=== PATIENT | male | born 1955 | race Caucasian/White ===

== ENCOUNTER 2016-07-12 00:36 | Inpatient (IN) | payer MEDICAID ==
[~2016-07-12] VITALS: Ht 177.8 cm; Wt 114.1 kg
[~2016-07-12 00:36] MED LIST: ASPI-650 PO; ATOR80TA18 PO; BENA20TA48 PO; CLOP75TA19 PO; FURO40TA4 PO; GLIM4TAB PO; MTF1000T PO; SMV40T PO; same meds
[2016-07-12] MEDS ORDERED: NITROGLYCERIN 50 MG/D5W (PMX) 250 ML IV STA (00:37)
[2016-07-12] MEDS ORDERED: ALBUTEROL 0.083% (NEB) 2.5 MG/3 ML AMP HHN ONE ×2 (00:45→02:00)
[2016-07-12 00:53] VITALS: Ht 177.8 cm; Wt 114.1 kg
[2016-07-12] MEDS ORDERED: IPRATROPIUM (NEB) 0.5 MG/2.5 ML AMP HHN ONE ×2 (01:00→02:00)
[2016-07-12] MEDS ORDERED: ENALAPRILAT 1.25 MG INJ IV ONE (01:30)
[2016-07-12 01:54] LABS: ADD SCAN DIFF NO
[2016-07-12] MEDS ORDERED: FUROSEMIDE 40 MG INJ IV ONE ×2 (02:00→14:30)
[2016-07-12 02:06] LABS: INR 1.03; PARTIAL THROMBOPLASTIN TIME 30.9 Sec (25.0-35.0); PROTIME 13.5 Sec (12.2-14.2); PT RATIO 1.1
[2016-07-12 02:08] LABS: CALCIUM 9.3 mg/dl (8.4-10.2); CREATININE 1.61 mg/dl (0.61-1.24)
[2016-07-12 02:09] LABS: BASOPHIL # 0.1 10^3/ul (0.0-0.1); BASOPHILS % 0.7 % (0.0-2.0); EOSINOPHILS # 0.3 10^3/ul (0.0-0.5); EOSINOPHILS % 2.9 % (0.0-7.0); HEMATOCRIT 30.5 % (42.0-52.0); HEMOGLOBIN 9.2 g/dl (14.0-18.0); LYMPHOCYTES # 1.7 10^3/ul (0.8-2.9); LYMPHOCYTES % 18.8 % (15.0-51.0); MEAN CORPUSCULAR HEMOGLOBIN 27.5 pg (29.0-33.0); MEAN CORPUSCULAR HGB CONC 30.2 g/dl (32.0-37.0); MEAN PLATELET VOLUME 12.1 fl (7.4-10.4); MONOCYTE # 0.7 10^3/ul (0.3-0.9); MONOCYTES % 8.1 % (0.0-11.0); NEUTROPHIL # 6.3 10^3/ul (1.6-7.5); NEUTROPHILS % 69.1 % (39.0-77.0); PLATELET COUNT 194 10^3/UL (140-415); RED BLOOD COUNT 3.35 10^6/ul (4.70-6.10); RED CELL DISTRIBUTION WIDTH 15.4 % (11.5-14.5); WHITE BLOOD COUNT 9.1 10^3/ul (4.8-10.8)
[2016-07-12 02:19] LABS: CK-MB 1.52 ng/ml (0.0-2.4)
[2016-07-12 02:21] LABS: TROPONIN-I 0.028 ng/ml (0.00-0.12)
--- NOTE | 2016-07-12 02:27 | RADRPT ---
PROCEDURE: XR Chest. CLINICAL INDICATION: Chest pain, shortness of breath TECHNIQUE: Single frontal view of the chest was obtained COMPARISON: 04/24/2012 FINDINGS: Enlargement of the cardiac silhouette again seen. There is now pulmonary vascular congestion and bi lateral lung density consistent with pulmonary edema. Calcification in the aortic arch. ECG leads projected over the chest. No definite pneumothorax is seen. IMPRESSION: Consistent with congestive heart failure and pulmonary edema. RPTAT: HJES .Griffin Lane MD, MD Date Time Electronically viewed and signed by .Griffin Lane MD, MD on 07/12/2016 02:27 .S/
[2016-07-12 02:29] LABS: TROPONIN-I 0.035 ng/ml (0.00-0.12)
[2016-07-12 02:52] LABS: AADO2 Arterial 213.9 mmHg (7.0-24.0); Allen Test ACCEPTAB; Arterial Base Excess 4.3 mmol/L (-3.0-3); Arterial COHb 0.3 % (0.0-3.0); Arterial Fraction of Oxyhgb 97.8 % (93.0-99.0); Arterial HCO3 30.2 mmol/L (22.0-26.0); Arterial MetHb 0.5 % (0.0-1.5); Arterial Total Hemglobin 9.1 g/dl (12.0-18.0); Blood Gas IEPAP 18/5; Blood Gas PS 13; MODE MASK - BIPAP
[2016-07-12 03:03] LABS: AADO2 Arterial 213.9 mmHg (7.0-24.0); Allen Test ACCEPTAB; Arterial Base Excess 4.3 mmol/L (-3.0-3); Arterial COHb 0.3 % (0.0-3.0); Arterial Fraction of Oxyhgb 97.8 % (93.0-99.0); Arterial HCO3 30.2 mmol/L (22.0-26.0); Arterial MetHb 0.5 % (0.0-1.5); Arterial Total Hemglobin 9.1 g/dl (12.0-18.0); Blood Gas IEPAP 18/5; Blood Gas PS 13; MODE MASK - BIPAP
--- NOTE | 2016-07-12 03:24 | ERA ---
ER Documentation Chief Complaint Date/Time DATE: 07/12/16 TIME: 03:18 Chief Complaint biba from home pt was gasping for air and tripoding per ems. o2 77% on CPAP HPI This 61-year-old gentleman presents to the emergency room after being brought in by ambulance from home for evaluation of respiratory distress. According to EMS this patient was gasping for air and was tripoding and his pulse ox was 54 percent on room air. The patient was placed on a CPAP machine and was transported to the emergency room for further evaluation. A detailed history is unobtainable from this patient secondary to his clinical condition at this time. ROS All systems reviewed and are negative except as per history of present illness. Medications Home Meds Reported Medications [same meds] No Conflict Check 02/02/12 Simvastatin (Simvastatin) 40 Mg Tablet, 1 TAB PO QHS 10/27/11 Furosemide (Lasix) 40 Mg Tab, 2 TAB PO BID 10/27/11 Clopidogrel Bisulfate (Plavix) 75 Mg Tablet, 1 TAB PO DAILY 10/27/11 Glimepiride* (Glimepiride*) 4 Mg Tablet, 1 TAB PO BID 10/27/11 Benazepril Hcl* (Benazepril Hcl*) 20 Mg Tablet, 1 TAB PO BID 10/27/11 Aspirin (Aspirin) 81 Mg Tablet, 1 TAB PO DAILY 10/27/11 Atorvastatin (Lipitor) 80 Mg Tablet, 1 TAB PO DAILY 10/27/11 Metformin* (Glucophage*) 1,000 Mg Tablet, 1 TAB PO BID 10/27/11 Allergies Allergies: Coded Allergies: No Known Drug Allergies (Verified Allergy, 04/23/12) Uncoded Allergies: KIWI (Allergy, Unknown, 10/31/11) PMhx/Soc History of Surgery: Yes Anesthesia Reaction: No Hx Neurological Disorder: No Hx Respiratory Disorders: Yes (COPD, CHF) Hx Cardiac Disorders: Yes (CHF) Hx Psychiatric Problems: No Hx Miscellaneous Medical Probl: No Hx Alcohol Use: No Hx Substance Use: No Hx Tobacco Use: No Physical Exam Vitals Vital Signs Date Time Temp Pulse Resp B/P Pulse Ox O2 Delivery O2 Flow Rate FiO2 07/12/16 03:04 98.7 80 18 90/56 100 BIPAP 07/12/16 02:45 80 18 87/51 100 BIPAP 07/12/16 02:34 98.7 84 21 94/57 100 BIPAP 07/12/16 02:12 94 21 97/57 100 BIPAP 07/12/16 02:03 99 23 120/65 100 BIPAP 07/12/16 01:56 106 30 136/74 BIPAP 07/12/16 01:49 111 30 165/83 100 BIPAP 07/12/16 01:40 98.7 115 40 183/87 97 BIPAP 07/12/16 01:30 120 35 205/90 100 BIPAP 07/12/16 01:17 119 100 60 07/12/16 00:53 98.4 115 28 188/93 97 Physical Exam INITIAL VITAL SIGNS: Reviewed by me GENERAL: The patient is well developed, severe respiratory distress, tachypnea HEENT: Pupils equal, round, and reactive to light. EOMI. There is no scleral icterus. NECK: C-spine is soft and supple, there is no meningismus. There is no cervical lymphadenopathy. LUNGS: Diffuse rales auscultated in upper and lower lobes HEART: Tachycardic, no murmurs, clicks, rubs or gallops. ABDOMEN: Soft, non-tender, non-distended. There are bowel sounds in all four quadrants. No rebound or guarding. EXTREMITIES: There is no peripheral cyanosis or edema. No focal swelling or erythema. NEUROLOGICAL: The patient moves all four extremities with 5/5 strength. Cranial nerves II - XII are intact. Normal gait. Alert and oriented SKIN: Diaphoretic, there is no apparent rash or petechiae. HEME/LYMPHATIC: There is no evidence of excessive bruising or lymphedema. PSYCHIATRIC: The patient does not appear anxious or depressed. Result Diagram: 07/12/16 0140 07/12/16 0140 Results 24 hrs Laboratory Tests Test 07/12/16 00:52 07/12/16 01:40 07/12/16 02:30 Blood Gas Specimen Source Blood arterial Blood arterial Arterial Blood Date Drawn 07/12/2016 2:40:31 AM 07/12/2016 2:40:00 AM Arterial Blood pH (Temp corrected) 7.376 7.376 Arterial Blood pCO2 (Temp correct) 52.7mmhg 52.7mmhg Arterial Blood pO2 (Temp corrected) 155.9mmHG 155.9mmHG Arterial Blood HCO3 30.2mmol/L 30.2mmol/L Arterial Blood Base Excess 4.3mmol/L 4.3mmol/L Arterial Blood Oxygen Saturation 98.6mmHG 98.6mmHG Jose David Test ACCEPTAB ACCEPTAB Arterial Blood Gas Puncture Site Right Radial Right Radial Arterial Blood Carboxyhemoglobin 0.3% 0.3% Arterial Blood Methemoglobin 0.5% 0.5% Blood Gas A-a O2 Differential 213.9mmHg 213.9mmHg Oxyhemoglobin Percent 97.8% 97.8% Total Hemoglobin 9.1g/dl 9.1g/dl Blood Gas Temperature 37.0C 37.0C Blood Gas Respiration Rate 20.0 20.0 Blood Gas Actual Respiration Rate 24 24 Blood Gas Modality MASK - BIPAP MASK - BIPAP FiO2 60.0% 60.0% Blood Gas Pressure Support 13 13 Blood Gas IPAP/EPAP Ratio 18/5 18/5 Blood Gas Notified Whom UP UP Blood Gas Notified Time 07/12/2016 2:52:25 AM 07/12/2016 2:52:00 AM White Blood Count 9.110^3/ul Red Blood Count 3.3510^6/ul Hemoglobin 9.2g/dl Hematocrit 30.5% Mean Corpuscular Volume 91.0fl Mean Corpuscular Hemoglobin 27.5pg Mean Corpuscular Hemoglobin Concent 30.2g/dl Red Cell Distribution Width 15.4% Platelet Count 75392^3/UL Mean Platelet Volume 12.1fl Neutrophils % 69.1% Lymphocytes % 18.8% Monocytes % 8.1% Eosinophils % 2.9% Basophils % 0.7% Nucleated Red Blood Cells % 0.0/100WBC Neutrophils # 6.310^3/ul Lymphocytes # 1.710^3/ul Monocytes # 0.710^3/ul Eosinophils # 0.310^3/ul Basophils # 0.110^3/ul Nucleated Red Blood Cells # 0.010^3/ul Prothrombin Time 13.5Sec Prothrombin Time Ratio 1.1 INR International Normalized Ratio 1.03 Activated Partial Thromboplast Time 30.9Sec Sodium Level 142mmol/L Potassium Level 5.0mmol/L Chloride Level 100mmol/L Carbon Dioxide Level 29mmol/L Anion Gap 18 Blood Urea Nitrogen 36mg/dl Creatinine 1.61mg/dl Glucose Level 210mg/dl Lactic Acid Level 1.4mmol/L Calcium Level 9.3mg/dl Creatine Kinase 71IU/L Creatine Kinase Index 2.1 Creatinine Kinase MB (Mass) 1.52ng/ml Troponin I 0.035ng/ml B-Type Natriuretic Peptide 3010PG/ML Current Medications Medications (Trade) Dose Ordered Sig/Jose De Jesus Route PRN Reason Start Time Stop Time Status Last Admin Dose Admin Nitroglycerin/ Dextrose (Nitroglycerin 50 Mg/D5W (Pmx)) 250 ml @ 6 mls/hr ONCE STAT IV 07/12/16 00:37 07/13/16 18:16 07/12/16 01:29 Albuterol (Proventil 0.083% (Neb)) 10 mg ONCE ONCE N 07/12/16 00:45 07/12/16 00:50 DC 07/12/16 01:15 Ipratropium [place] (Atrovent 0.02% (Neb)) 1 mg ONCE ONCE N 07/12/16 01:00 07/12/16 01:01 DC 07/12/16 01:15 Enalaprilat (Vasotec Iv) 0.625 mg ONCE ONCE IV 07/12/16 01:30 07/12/16 01:31 DC 07/12/16 01:27 Furosemide (Lasix) 40 mg ONCE ONCE IV 07/12/16 02:00 07/12/16 02:01 DC Albuterol (Proventil 0.083% (Neb)) 10 mg ONCE ONCE N 07/12/16 02:00 07/12/16 02:01 DC 07/12/16 02:16 Ipratropium [place] (Atrovent 0.02% (Neb)) 1 mg ONCE ONCE N 07/12/16 02:00 07/12/16 02:01 DC 07/12/16 02:16 Procedures/MDM EKG: Rate/Rhythm: Sinus tachycardia QRS, ST, T-waves: [No changes consistent w/ acute ischemia] Impression: [No evidence of ischemia or arrhythmia] Chest X-ray 1V Interpreted by me: Soft Tissue: Pulmonary edema Bones: No acute abnormalities Mediastinum/Cardiac Silhouette/Lungs: [No acute abnormalities] X-ray Shoulder 3V Interpreted by me: Bones: Humeral neck fracture Joints: No dislocation Foreign body: None This 61-year-old male presents to the emergency room in severe respiratory distress. When this patient presented is on a CPAP, he was diaphoretic, tachypneic, and tachycardic. His pulse ox is 74%. This patient was immediately transitioned to a BiPAP. No IV line was established and he was started on the nitroglycerin drip at 300 mics per minute. The patient was given intravenous Vasotec, and lab work was drawn. This patient's x-ray does show pulmonary edema. After 20 minutes on a BiPAP this patient started to improve clinically. His first ABG does show hypercarbia. This patient's blood pressure started to slowly trend down from systolic of greater than 200 to approximately 150 systolic. The patient is diuresing in the emergency room. He states is feeling much better at this time. There is no need for emergent intubation this patient is clinically improving on BiPAP with nitro. This patient will be placed in the intensive care unit given his initial presentation of severe respiratory distress. He is on a nitroglycerin drip at this time at 25 mics per minute. This patient was complaining of right-sided arm pain and stated that he fell one month ago and thinks that his arm is broken. He has not seen a physician for this. I did obtain an x-ray which did confirm a humeral neck fracture. This patient was placed in the right arm sling. He will be admitted to our panel physician, Dr. Richardson. Splint Assessment: Neurovascularly intact post splint placement with good fit. Critical Care: Excluding all billable procedures Time: 48 minutes Treatments/Evaluations: Emergent and rapid respiratory assessment and management with continuous monitoring. Advanced airway equipment at the ready, while the patient's respiratory symptoms were stabilized. Departure Diagnosis: Primary Impression: Acute and chronic respiratory failure with hypoxia Additional Impressions: Acute decompensated heart failure Pulmonary edema Hypercapnia Fracture of neck of humerus Renal insufficiency Uncontrolled hypertension Condition: Stable CLARIMAT STAPLETON Jul 12, 2016 03:24
--- NOTE | 2016-07-12 03:41 | RADRPT ---
PROCEDURE: RIGHT SHOULDER CLINICAL INDICATION: 61-year-old male with trauma. TECHNIQUE: Two-views of the right shoulder were obtained. The images reviewed on a PACS workstatio n. COMPARISON: Right humerus obtained concurrently. FINDINGS: There is a displaced comminuted proximal right humeral head/neck fracture with avulsion of the great er tuberosity. Mild degenerative changes are seen within the right acromioclavicular joint. IMPRESSION: Displaced comminuted proximal right humeral head/neck fracture. .Sonny Demarco MD, MD Date Time Electronically viewed and signed by .Sonny Demarco MD, MD on 07/12/2016 03:41 .M/
--- NOTE | 2016-07-12 03:42 | RADRPT ---
PROCEDURE: RIGHT HUMERUS - 1 VIEW CLINICAL INDICATION: 61-year-old male with right arm pain following trauma. TECHNIQUE: A single AP view of the right humerus was performed. The images reviewed on a PACS work station. COMPARISON: Right shoulder obtained concurrently. FINDINGS: There is a displaced comminuted proximal right humeral head/neck fracture with avulsion of the great er tuberosity. Mild degenerative changes are seen within the right acromioclavicular joint. The elb ow joint appears to be intact on this single plane radiograph. Calcifications are noted within the region of the proximal brachial artery. The bone marrow mineralization is within normal limits. IMPRESSION: Displaced comminuted proximal right humeral head/neck fracture. .Sonny Demarco MD, MD Date Time Electronically viewed and signed by .Sonny Demarco MD, on 07/12/2016 03:42 .M/
[2016-07-12] MEDS ORDERED: GLUCOSE GEL 15 GRAM TUBE BUCCAL PRN (04:30)
[2016-07-12] MEDS ORDERED: DEXTROSE 50% 50 ML SYRINGE IV PRN ×2 (04:30)
[2016-07-12] MEDS ORDERED: NITROGLYCERIN (SL) 0.4 MG TAB SL PRN (04:30)
[2016-07-12] MEDS ORDERED: LORAZEPAM 2 MG INJ IV PRN (04:30)
[2016-07-12] MEDS ORDERED: METOCLOPRAMIDE 10 MG INJ IV PRN (04:30)
[2016-07-12] MEDS ORDERED: GLUCOSE GEL 15 GRAM TUBE PO PRN ×2 (04:30)
[2016-07-12] MEDS ORDERED: GLUCAGON 1 MG INJ IM PRN (04:30)
[2016-07-12] MEDS ORDERED: ACETAMINOPHEN 650MG/20.3ML CUP PO PRN (04:30)
[2016-07-12] MEDS ORDERED: HYDROCODONE/APAP (5/325) TAB PO PRN ×2 (04:30)
--- NOTE | 2016-07-12 04:33 | HP ---
Date/Time of Note Date/Time of Note DATE: 07/12/16 TIME: 04:06 Assessment/Plan VTE Prophylaxis VTE Prophylaxis Intervention: other (Lovenox) Lines/Catheters IV [facility] Saline Lock Assessment/Plan Assessment/Plan 1) Acute and chronic respiratory failure with hypoxia - ADMIT to Intensive care - CONSULT: Critical Care - Dr. Andres - CONSULT - Cardiology - Dr. Davenport - COntinue Nitro Drip as needed to control blood pressure - Continue CPAP - ABGs prn - Echocardiogram - Serial Troponin - EKG in AM - Labs in AM: CBC, BMP 2) Acute decompensated heart failure 3) Pulmonary edema - Diurese prn 4) Hypercapnia - Monitor with help of RT 5) Fracture of neck of humerus - Outpatient Ortho Consult unless pt requires Inpatient Evaluation 6) Renal insufficiency - Gentle Hydration 7) Uncontrolled hypertension 8) Diabetes - AccuChek Q 4 hours while NPO then AC and HS - Insulin Sliding Scale HPI/ROS Admit Date/Time Admit Date/Time 07/12/16 0406 Hx of Present Illness biba from home pt was gasping for air and tripoding per ems. o2 77% on CPAP This 61-year-old gentleman presents to the emergency room after being brought in by ambulance from home for evaluation of respiratory distress. According to EMS this patient was gasping for air and was tripoding and his pulse ox was 54 percent on room air. The patient was placed on a CPAP machine and was transported to the emergency room for further evaluation. A detailed history is unobtainable from this patient secondary to his clinical condition at this time. er Course per ER Physician: This 61-year-old male presents to the emergency room in severe respiratory distress. When this patient presented is on a CPAP, he was diaphoretic, tachypneic, and tachycardic. His pulse ox is 74%. This patient was immediately transitioned to a BiPAP. No IV line was established and he was started on the nitroglycerin drip at 300 mics per minute. The patient was given intravenous Vasotec, and lab work was drawn. This patient's x -ray does show pulmonary edema. After 20 minutes on a BiPAP this patient started to improve clinically. His first ABG does show hypercarbia. This patient's blood pressure started to slowly trend down from systolic of greater than 200 to approximately 150 systolic. The patient is diuresing in the emergency room. He states is feeling much better at this time. There is no need for emergent intubation this patient is clinically improving on BiPAP with nitro. This patient will be placed in the intensive care unit given his initial presentation of severe respiratory distress. He is on a nitroglycerin drip at this time at 25 mics per minute. This patient was complaining of right- sided arm pain and stated that he fell one month ago and thinks that his arm is broken. He has not seen a physician for this. I did obtain an x-ray which did confirm a humeral neck fracture. This patient was placed in the right arm sling. He will be admitted to our panel physician, Dr. Espana. KAMILA General: Admits: Denies: Fever, Chills, Poor Appetite, Generalized Body Aches Eyes: Admits: Denies: Blurry Vision, Double Vision HENT: Admits: Denies: Ear Pain/Pressure, Runny/Stuffy Nose, Sore Throat Cardiovascular: Admits: Denies: Chest Pain, Palpitations, Leg Swelling Pulmonary: Admits: Shortness of Breath Denies: Cough, Wheeze Gastrointestinal: Admits: Denies: Abdominal Pain, Nausea, Vomiting, Diarrhea, Blood in Stool, Black-Colored Stool Urogenital: Admits: Denies: Burning with Urination, Urinary Frequency, Blood in Urine Musculoskeletal: Admits: Right shouder pain, improved with sling and pain medication Denies: Joint Swelling, Muscle Pain Neurological: Admits: Denies: Headache, Dizziness, Numbness, Tingling, Shooting Pains Integumentary: Admits: Denies: Rash, Itch Endocrine: Admits: Denies: Excessive Thirst, Excessive Hunger, Intolerant to Cold , Intolerant to Heat Psychiatric: Admits: Denies: Anxiety, Depression PMH/Family/Social Past Medical History COPD; CHF; HTN; DM Social History Alcohol Use: none Smoking Status: Never smoker Drug Use: none Exam/Review of Systems Vital Signs Vitals Vital Signs Date Time Temp Pulse Resp B/P Pulse Ox O2 Delivery O2 Flow Rate FiO2 07/12/16 03:55 60 100 60 07/12/16 03:04 98.7 18 90/56 BIPAP Exam Exam General: Overweight 61 year old male, alert, on CPAP in minimal respiratory distress Eyes: Sclera White HENT: Normocephalic/Atraumatic, External Ears/Nose Normal, Moist Mucus Membranes Neck: Supple, Trachea Midline Cardiovascular: Normal Rate, Regular Rhythm, Normal S1 and S2, No Murmur, No Extra Sounds. Radial pulse +2/4. No pedal Edema. Pulmonary: Clear to Auscultation Bilaterally, but decreased airflow throughout , Normal Respiratory Effort Gastrointestinal: Normoactive Bowel Sounds, Soft, Non-Tender/Non-Distended, No Hepatosplenomegaly Appreciated, No Pulsatile Masses Urogenital: Deferred Musculoskeletal: Normal Muscle Bulk and Tone Neurological: CN II - XII Grossly Intact, Non-Focal, Speech Normal Integumentary: Normal Moisture and Temperature, Good Turgor, No Jaundice, No Rash Lymphatic: No Cervical Lymphadenopathy Psychiatric: Appropriate Mood and Affect, Good Eye Contact Labs Result Diagram: 07/12/16 01407/12/16 014 Medications Medications Home Meds Reported Medications [same meds] No Conflict Check 02/02/12 Simvastatin (Simvastatin) 40 Mg Tablet, 1 TAB PO QHS 10/27/11 Furosemide (Lasix) 40 Mg Tab, 2 TAB PO BID 10/27/11 Clopidogrel Bisulfate (Plavix) 75 Mg Tablet, 1 TAB PO DAILY 10/27/11 Glimepiride* (Glimepiride*) 4 Mg Tablet, 1 TAB PO BID 10/27/11 Benazepril Hcl* (Benazepril Hcl*) 20 Mg Tablet, 1 TAB PO BID 10/27/11 Aspirin (Aspirin) 81 Mg Tablet, 1 TAB PO DAILY 10/27/11 Atorvastatin (Lipitor) 80 Mg Tablet, 1 TAB PO DAILY 10/27/11 Metformin* (Glucophage*) 1,000 Mg Tablet, 1 TAB PO BID 10/27/11 Current Medications Medications (Trade) Dose Ordered Sig/Jose De Jesus Route PRN Reason Start Time Stop Time Status Last Admin Dose Admin Nitroglycerin/ Dextrose (Nitroglycerin 50 Mg/D5W (Pmx)) 250 ml @ 6 mls/hr ONCE STAT IV 07/12/16 00:37 07/13/16 18:16 07/12/16 01:29 Albuterol (Proventil 0.083% (Neb)) 10 mg ONCE ONCE HHN 07/12/16 00:45 07/12/16 00:50 DC 07/12/16 01:15 Ipratropium [place] (Atrovent 0.02% (Neb)) 1 mg ONCE ONCE HHN 07/12/16 01:00 07/12/16 01:01 DC 07/12/16 01:15 Enalaprilat (Vasotec Iv) 0.625 mg ONCE ONCE IV 07/12/16 01:30 07/12/16 01:31 DC 07/12/16 01:27 Furosemide (Lasix) 40 mg ONCE ONCE IV 07/12/16 02:00 07/12/16 02:01 DC Albuterol (Proventil 0.083% (Neb)) 10 mg ONCE ONCE HHN 07/12/16 02:00 07/12/16 02:01 DC 07/12/16 02:16 Ipratropium [place] (Atrovent 0.02% (Neb)) 1 mg ONCE ONCE N 07/12/16 02:00 07/12/16 02:01 DC 07/12/16 02:16 Procedures Procedures Laboratory Tests Test 07/12/16 00:52 07/12/16 01:40 07/12/16 02:30 Blood Gas Specimen Source Blood arterial Blood arterial Arterial Blood Date Drawn 07/12/2016 2:40:31 AM 07/12/2016 2:40:00 AM Arterial Blood pH (Temp corrected) 7.376 7.376 Arterial Blood pCO2 (Temp correct) 52.7mmhg 52.7mmhg Arterial Blood pO2 (Temp corrected) 155.9mmHG 155.9mmHG Arterial Blood HCO3 30.2mmol/L 30.2mmol/L Arterial Blood Base Excess 4.3mmol/L 4.3mmol/L Arterial Blood Oxygen Saturation 98.6mmHG 98.6mmHG Jose David Test ACCEPTAB ACCEPTAB Arterial Blood Gas Puncture Site Right Radial Right Radial Arterial Blood Carboxyhemoglobin 0.3% 0.3% Arterial Blood Methemoglobin 0.5% 0.5% Blood Gas A-a O2 Differential 213.9mmHg 213.9mmHg Oxyhemoglobin Percent 97.8% 97.8% Total Hemoglobin 9.1g/dl 9.1g/dl Blood Gas Temperature 37.0C 37.0C Blood Gas Respiration Rate 20.0 20.0 Blood Gas Actual Respiration Rate 24 24 Blood Gas Modality MASK - BIPAP MASK - BIPAP FiO2 60.0% 60.0% Blood Gas Pressure Support 13 13 Blood Gas IPAP/EPAP Ratio 09/08 09/08 Blood Gas Notified Whom UP UP Blood Gas Notified Time 07/12/2016 2:52:25 AM 07/12/2016 2:52:00 AM White Blood Count 9.110^3/ul Red Blood Count 3.3510^6/ul Hemoglobin 9.2g/dl Hematocrit 30.5% Mean Corpuscular Volume 91.0fl Mean Corpuscular Hemoglobin 27.5pg Mean Corpuscular Hemoglobin Concent 30.2g/dl Red Cell Distribution Width 15.4% Platelet Count 87572^3/UL Mean Platelet Volume 12.1fl Neutrophils % 69.1% Lymphocytes % 18.8% Monocytes % 8.1% Eosinophils % 2.9% Basophils % 0.7% Nucleated Red Blood Cells % 0.0/100WBC Neutrophils # 6.310^3/ul Lymphocytes # 1.710^3/ul Monocytes # 0.710^3/ul Eosinophils # 0.310^3/ul Basophils # 0.110^3/ul Nucleated Red Blood Cells # 0.010^3/ul Prothrombin Time 13.5Sec Prothrombin Time Ratio 1.1 INR International Normalized Ratio 1.03 Activated Partial Thromboplast Time 30.9Sec Sodium Level 142mmol/L Potassium Level 5.0mmol/L Chloride Level 100mmol/L Carbon Dioxide Level 29mmol/L Anion Gap 18 Blood Urea Nitrogen 36mg/dl Creatinine 1.61mg/dl Glucose Level 210mg/dl Lactic Acid Level 1.4mmol/L Calcium Level 9.3mg/dl Creatine Kinase 71IU/L Creatine Kinase Index 2.1 Creatinine Kinase MB (Mass) 1.52ng/ml Troponin I 0.035ng/ml B-Type Natriuretic Peptide 3010PG/ML RADIOLOGY: PROCEDURE: XR Chest. CLINICAL INDICATION: Chest pain, shortness of breath TECHNIQUE: Single frontal view of the chest was obtained COMPARISON: 04/24/2012 FINDINGS: Enlargement of the cardiac silhouette again seen. There is now pulmonary vascular congestion and bilateral lung density consistent with pulmonary edema. Calcification in the aortic arch. ECG leads projected over the chest. No definite pneumothorax is seen. IMPRESSION: Consistent with congestive heart failure and pulmonary edema. PROCEDURE: RIGHT HUMERUS - 1 VIEW CLINICAL INDICATION: 61-year-old male with right arm pain following trauma. TECHNIQUE: A single AP view of the right humerus was performed. The images reviewed on a PACS workstation. COMPARISON: Right shoulder obtained concurrently. FINDINGS: There is a displaced comminuted proximal right humeral head/neck fracture with avulsion of the greater tuberosity. Mild degenerative changes are seen within the right acromioclavicular joint. The elbow joint appears to be intact on this single plane radiograph. Calcifications are noted within the region of the proximal brachial artery. The bone marrow mineralization is within normal limits. IMPRESSION: Displaced comminuted proximal right humeral head/neck fracture. PROCEDURE: RIGHT SHOULDER CLINICAL INDICATION: 61-year-old male with trauma. TECHNIQUE: Two-views of the right shoulder were obtained. The images reviewed on a PACS workstation. COMPARISON: Right humerus obtained concurrently. FINDINGS: There is a displaced comminuted proximal right humeral head/neck fracture with avulsion of the greater tuberosity. Mild degenerative changes are seen within the right acromioclavicular joint. IMPRESSION: Displaced comminuted proximal right humeral head/neck fracture. LENORA ESPANA DO Jul 12, 2016 04:26
[2016-07-12] MEDS: INSULIN ASPART [NOVOLOG] 3 ML PEN SC SCH ×4 (07:29→20:15)
[2016-07-12] MEDS ORDERED: ASPIRIN 81 MG TAB PO SCH (09:00)
[2016-07-12] MEDS ORDERED: BENAZEPRIL 20 MG TAB PO SCH (09:00)
[2016-07-12] MEDS ORDERED: ASPIRIN 81 MG TAB PO ONE (11:30)
[2016-07-12] MEDS: FAMOTIDINE 20 MG TAB PO SCH ×2 (11:52→20:10)
[2016-07-12] MEDS: CLOPIDOGREL 75 MG TAB PO SCH (11:53)
[2016-07-12 12:16] LABS: CHOL/HDL RATIO 3.5 RATIO
--- NOTE | 2016-07-12 12:34 | CONS ---
DATE OF ADMISSION: 07/12/2016 DATE OF CONSULTATION: 07/12/2016 PULMONARY CONSULTATION REASON FOR CONSULTATION: Respiratory distress. Thank you, Dr. Richardson, for this consultation. HISTORY OF PRESENT ILLNESS: This is a 61-year-old gentleman with multiple medical problems, who cam e in from home with significant shortness of breath, hypoxemia and respiratory distress. The patien t is a poor historian and unable to give me further details. Apparently he has been short of breath for several days. On admission he was found to be in congestive cardiac failure, with hypertensive urgency, requiring the addition of nitroglycerin, initiation of noninvasive positive pressure vent ilation and diuresis. Subsequently his respiratory status has improved. Upon further examination h michael also had a right humeral fracture, unclear etiology or day and time of fracture. PAST MEDICAL HISTORY: Hypertension, hyperlipidemia, probable obstructive sleep apnea and type 2 evans betes. MEDICATIONS: Per chart. ALLERGIES: NONE. SOCIAL HISTORY: Tobacco history none. Alcohol unknown. SYSTEMS REVIEW: A 12-point review of systems was negative, other than that mentioned above. PHYSICAL EXAMINATION: GENERAL: A chronically ill appearing gentleman, who appears comfortable at rest, in no acute distre ss. LABORATORY: White count 9.1, hemoglobin 9.2, platelets of 194. Troponin 0.305, BUN 36, creatinine 1.61, BNP 3010. Chest x-ray shows pulmonary edema, right displaced comminuted humeral fracture noted also. IMPRESSION AND PLAN: 1. Recent fall, with humeral fracture. 2. Congestive cardiac failure. 3. Hypoxemic respiratory failure. 4. History of diabetes mellitus. 5. History of essential hypertension. The patient will need: 1. Gentle diuresis. 2. Cardiology recommendations, echocardiogram and evaluation for ischemic heart disease. 3. Orthopedic evaluation. 4. Humeral fracture, likely conservative management. 5. DVT and GI prophylaxis. Dictated By: MARY BETH HAMM/CASSIE Conf#: [id number] DID#: [id number]
--- NOTE | 2016-07-12 14:04 | CONS ---
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 He has been following up with [facility] for his cardiology care. His symptoms have improved since admission. Chest x-ray with evidence of pulmonary edema. Would continue diuretics as blood pressure and renal function permits. Continue antiplatelet therapy, statin, beta-abhay as heart rate and blood pressure permits. Given renal dysfunction, would hold LEONIE inhibitor at the current time and start hydralazine and Isordil as blood pressure permits. Troponins mildly elevated, likely secondary to decompensated congestive heart failure and renal dysfunction. Check echocardiogram. Consider nephrology evaluation. Consultation Date/Type/Reason Admit Date/Time 07/12/16 0406 Type of Consultation: cv Reason for Consultation Shortness of breath Hx of Present Illness This is a 61-year-old male with past medical history of coronary artery disease , congestive heart failure who presents with progressive worsening shortness of breath. Symptoms began approximately 2 weeks ago with lower extremity edema and shortness of breath with exertion. This progressed and worsened yesterday. He states he is compliant with his medications but unclear compliance with diet. He denies any chest pain, dizziness or lightheadedness. His symptoms have improved since his admission. He does currently follow up with [facility] including his cardiology care. His last cardiac catheterization was performed at our facility a number of years ago. He denies exertional chest pain, dizziness or lightheadedness. He has been having a nonproductive cough. 12 point review of systems was performed with all pertinent positives and negatives mentioned above and all else is negative Past Medical History Medical History: congestive heart failure, coronary artery disease, high cholesterol, hypertension Past Surgical History Past Surgical Hx: angioplasty Family History Significant Family History: no pertinent family hx Social History Alcohol Use: none Smoking Status: Never smoker Drug Use: none Other Social History Previously worked as a [employer] Exam/Review of Systems Vital Signs Vitals Vital Signs Date Time Temp Pulse Resp B/P Pulse Ox O2 Delivery O2 Flow Rate FiO2 07/12/16 10:00 98.3 87 20 125/73 100 BIPAP 10.0 07/12/16 09:30 45 Exam No apparent distress Constitutional: alert, obese, oriented Head: normocephalic Neck: supple Respiratory: other (Coarse breath sounds bilaterally, no wheezing) Cardiovascular: other (S1-S2 heard), regular rate and rhythm, systolic murmur Gastrointestinal: bowel sounds, non-tender, other (No guarding), soft Extremities: edema Results Result Diagram: 07/12/16 0140 07/12/16 0140 Results 24 hrs Laboratory Tests Test 07/12/16 00:52 07/12/16 01:40 07/12/16 02:30 07/12/16 05:09 Blood Gas Specimen Source Blood arterial Blood arterial Arterial Blood Date Drawn 07/12/2016 2:40:31 AM 07/12/2016 2:40:00 AM Arterial Blood pH (Temp corrected) 7.376 7.376 Arterial Blood pCO2 (Temp correct) 52.7 H 52.7 H Arterial Blood pO2 (Temp corrected) 155.9 H 155.9 H Arterial Blood HCO3 30.2 H 30.2 H Arterial Blood Base Excess 4.3 H 4.3 H Arterial Blood Oxygen Saturation 98.6 H 98.6 H Jose David Test ACCEPTAB ACCEPTAB Arterial Blood Gas Puncture Site Right Radial Right Radial Arterial Blood Carboxyhemoglobin 0.3 0.3 Arterial Blood Methemoglobin 0.5 0.5 Blood Gas A-a O2 Differential 213.9 H 213.9 H Oxyhemoglobin Percent 97.8 97.8 Total Hemoglobin 9.1 L 9.1 L Blood Gas Temperature 37.0 37.0 Blood Gas Respiration Rate 20.0 20.0 Blood Gas Actual Respiration Rate 24 24 Blood Gas Modality MASK - BIPAP MASK - BIPAP FiO2 60.0 60.0 Blood Gas Pressure Support 13 13 Blood Gas IPAP/EPAP Ratio 09/08 09/08 Blood Gas Notified Whom UP UP Blood Gas Notified Time 07/12/2016 2:52:25 AM 07/12/2016 2:52:00 AM White Blood Count 9.1 Red Blood Count 3.35 L Hemoglobin 9.2 L Hematocrit 30.5 L Mean Corpuscular Volume 91.0 Mean Corpuscular Hemoglobin 27.5 L Mean Corpuscular Hemoglobin Concent 30.2 L Red Cell Distribution Width 15.4 H Platelet Count 194 Mean Platelet Volume 12.1 H Neutrophils % 69.1 Lymphocytes % 18.8 Monocytes % 8.1 Eosinophils % 2.9 Basophils % 0.7 Nucleated Red Blood Cells % 0.0 Neutrophils # 6.3 Lymphocytes # 1.7 Monocytes # 0.7 Eosinophils # 0.3 Basophils # 0.1 Nucleated Red Blood Cells # 0.0 Prothrombin Time 13.5 Prothrombin Time Ratio 1.1 INR International Normalized Ratio 1.03 Activated Partial Thromboplast Time 30.9 Sodium Level 142 Potassium Level 5.0 Chloride Level 100 Carbon Dioxide Level 29 Anion Gap 18 H Blood Urea Nitrogen 36 H Creatinine 1.61 H Glucose Level 210 Lactic Acid Level 1.4 Calcium Level 9.3 Creatine Kinase 71 Creatine Kinase Index 2.1 Creatinine Kinase MB (Mass) 1.52 Troponin I 0.035 B-Type Natriuretic Peptide 3010 H Bedside Glucose 171 Test 07/12/16 05:20 07/12/16 07:24 07/12/16 07:30 07/12/16 10:20 Lactic Acid Level 1.2 1.1 Bedside Glucose 154 Hemoglobin A1c 5.7 Troponin I 0.305 *H Triglycerides Level 121 Cholesterol Level 91 L LDL Cholesterol, Calculated 41 HDL Cholesterol 26 L Cholesterol/HDL Ratio 3.5 Test 07/12/16 12:50 07/12/16 13:50 Creatine Kinase 70 Creatine Kinase Index Pending Creatinine Kinase MB (Mass) Pending Troponin I Pending Bedside Glucose 72 Medications Medications Current Medications Metoclopramide HCl (Reglan) 10 mg Q6H PRN IV NAUSEA AND/OR VOMITING; Start at 04:30 Nitroglycerin (Nitroglycerin (Sl Tab) 0.4 Mg) 1 tab Q5M PRN SL CHEST PAIN; Start 07/12/16 at 04:30 Acetaminophen (Tylenol Liquid) 650 mg Q6H PRN PO PAIN LEVEL 1-3 OR FEVER; Start 07/12/16 at 04:30 Acetaminophen/ Hydrocodone Bitart ([place] (5/325)) 1 tab Q6H PRN PO PAIN LEVEL 4 -6; Start 07/12/16 at 04:30 Acetaminophen/ Hydrocodone Bitart ([place] (5/325)) 2 tab Q6H PRN PO PAIN LEVEL 7 -10; Start 07/12/16 at 04:30 Lorazepam (Ativan) 0.5 mg Q4 PRN IV ANXIETY; Start 07/12/16 at 04:30 Famotidine (Pepcid) 20 mg Q12 PO Last administered on 07/12/16 11:52; Admin Dose 20 MG; Start 07/12/16 at 09:00 Atorvastatin Calcium (Lipitor) 20 mg HS PO ; Start 07/12/16 at 21:00 Benazepril HCl (Lotensin) 20 mg BID PO ; Start 07/12/16 at 09:00; Status Future Hold Clopidogrel Bisulfate (plaVIX) 75 mg DAILY PO Last administered on 07/12/16 11 :53; Admin Dose 75 MG; Start 07/12/16 at 09:00 Miscellaneous Information 1 ea NOTE XX ; Start 07/12/16 at 04:30 Glucose (Glutose) 15 gm Q15M PRN PO DECREASED GLUCOSE; Start 07/12/16 at 04:30 Glucose (Glutose) 22.5 gm Q15M PRN PO DECREASED GLUCOSE; Start 07/12/16 at 04: 30 Dextrose (D50w Syringe) 25 ml Q15M PRN IV DECREASED GLUCOSE; Start 07/12/16 at 04:30 Dextrose (D50w Syringe) 50 ml Q15M PRN IV DECREASED GLUCOSE; Start 07/12/16 at 04:30 Glucagon (Glucagen) 1 mg Q15M PRN IM DECREASED GLUCOSE; Start 07/12/16 at 04:30 Glucose (Glutose) 15 gm Q15M PRN BUCCAL DECREASED GLUCOSE; Start 07/12/16 at 04 :30 Aspirin (Aspirin) 325 mg DAILY PO ; Start 07/13/16 at 09:00 Procedures Procedures ECG demonstrates sinus tachycardia at 112 bpm, anterior Q waves, poor R-wave progression, nonspecific STT wave abnormalities Dayron Davenport DO Jul 12, 2016 14:04
[2016-07-12 14:10] LABS: TROPONIN-I 0.245 ng/ml (0.00-0.12)
[2016-07-12 14:11] LABS: CK-MB 2.34 ng/ml (0.0-2.4)
[2016-07-12 15:00] VITALS: TEMP 98.3
[2016-07-12 16:48] VITALS: BP 123/56; PULSE 50; RESP 18
[2016-07-12 16:50] VITALS: PULSE 49
--- NOTE | 2016-07-12 17:56 | RADRPT ---
Echocardiogram Report Patient Name: HAILEY RAINEY Gender: Male Date: 1955 Study Date: 12-Jul-2016 Culinary Specialist: Sravan Prasad LESA Location: 5 Ref. Physician: LENORA ESPANA Quality: Adequate Procedures: Transthoracic echocardiogram with complete 2D, M-Mode, and doppler examination. Indications: Pulmonary edema. 2D/M Mode Doppler Measurement Value Normal Ranges Measurement Value Normal Ranges LVIDd 2D 6.3 3.5 - 5.6 cm AV Peak Harris 1.6 m/sec LVIDs 2D 4.0 2.1 - 4.1 cm AV Peak PG 10.1 mmHg LVPWd 2D 0.8 0.6 - 1.1 cm MV E Peak Harris 1.7 m/sec IVSd 2D 0.9 0.6 - 1.1 cm MV A Peak Harris 0.8 m/sec AoR Diam 2D 3.1 2.0 - 3.7 cm MV E/A 2.2 EDV 2D 199.8 cm3 MV PHT 99.4 msec ESV 2D 64.5 cm3 MV Peak Harris 2.3 m/sec LA Dimen 2D 4.8 2.3 - 4.0 cm MV Peak PG 21.9 mmHg MV Mean Harris 0.9 m/sec MV Mean PG 4.6 mmHg MV Decel Time 309 msec MV Decel [place] 6 MV E/A 2.2 MV PHT 99.4 msec MV VTI 68.4 cm MVA PHT 2.2 cm2 TR Peak Harris 2.6 m/sec TR Peak PG 27.7 mmHg RVSP 33.0 mmHg Findings Left Ventricle: Normal left ventricular cavity size. Mild enlargement of left ventricle cavity. Mild left ventricular systolic dysfunction. Ejection fraction is visually estimated at 45 %. Tissue Doppler/Mitral Doppler indices are consistent with pseudonormalization with mildly elevated left atrial pressure (Stage II diastolic dysfunction). Right Ventricle: Normal right ventricular size. Normal right ventricular systolic function. Left Atrium: There is moderate enlargement of left atrium. Right Atrium: The right atrium is normal in size. Mitral Valve: Moderate mitral leaflet calcification. Severe mitral annular calcification. Mild to moderate mitral valve regurgitation. Mild mitral stenosis. Aortic Valve: No significant aortic stenosis or insufficiency. Aortic cusps appear mildly calcified. Tricuspid Valve: Normal appearance of the tricuspid valve. Estimated peak PA systolic pressure 33 mmHg. There is mild tricuspid regurgitation. Pulmonic Valve: Pulmonic valve not well visualized. Pericardium: Normal pericardium with no significant pericardial effusion. Aorta: Normal aortic root. IVC: Dilated IVC without respiratory collapse consistent with elevated right atrial pressure. Conclusions 1.Normal left ventricular cavity size. Mild enlargement of left ventricle cavity. Mild left ventricular systolic dysfunction. Ejection fraction is visually estimated at 45 %. Tissue Doppler/Mitral Doppler indices are consistent with pseudonormalization with mildly elevated left atrial pressure (Stage II diastolic dysfunction). 2.Normal right ventricular size. Normal right ventricular systolic function. 3.There is moderate enlargement of left atrium. 4.The right atrium is normal in size. 5.Mild to moderate mitral valve regurgitation. Mild mitral stenosis. 6.Estimated peak PA systolic pressure 33 mmHg. There is mild tricuspid regurgitation. 7.No significant aortic stenosis or insufficiency. 8.Normal pericardium with no significant pericardial effusion. Electronically Signed By: Dayron Davenport 12-Jul-2016 17:55:23 -0700 Patient Name: HAILEY RAINEY Study Date: 12-Jul-2016 [id number]
[2016-07-12 20:00] VITALS: BP 130/61; RESP 20
[2016-07-12] MEDS: ATORVASTATIN 40 MG TAB PO SCH (20:10)
[2016-07-12 20:44] VITALS: PULSE 56
[2016-07-12] MEDS ORDERED: ATORVASTATIN 20 MG TAB PO SCH (21:00)
[2016-07-13] VITALS (13 sets, daily range): BP systolic 119–161; BP diastolic 56–79; PULSE 60–77; RESP 18–22
[2016-07-13] MEDS: INSULIN ASPART [NOVOLOG] 3 ML PEN SC SCH ×4 (07:55→20:10)
[2016-07-13] MEDS: CLOPIDOGREL 75 MG TAB PO SCH (08:15)
[2016-07-13] MEDS: ASPIRIN 81 MG TAB PO SCH (08:15)
[2016-07-13] MEDS: FAMOTIDINE 20 MG TAB PO SCH ×2 (08:15→20:11)
[2016-07-13 08:19] LABS: ADD SCAN DIFF NO
[2016-07-13 08:22] LABS: BASOPHILS % 0.3 % (0.0-2.0); EOSINOPHILS # 0.2 10^3/ul (0.0-0.5); EOSINOPHILS % 1.9 % (0.0-7.0); HEMATOCRIT 28.2 % (42.0-52.0); HEMOGLOBIN 8.8 g/dl (14.0-18.0); LYMPHOCYTES # 0.7 10^3/ul (0.8-2.9); LYMPHOCYTES % 8.3 % (15.0-51.0); MEAN CORPUSCULAR HEMOGLOBIN 28.2 pg (29.0-33.0); MEAN CORPUSCULAR HGB CONC 31.2 g/dl (32.0-37.0); MEAN CORPUSCULAR VOLUME 90.4 fl (82.0-101.0); MEAN PLATELET VOLUME 11.9 fl (7.4-10.4); MONOCYTE # 0.8 10^3/ul (0.3-0.9); MONOCYTES % 9.8 % (0.0-11.0); NEUTROPHIL # 6.3 10^3/ul (1.6-7.5); NEUTROPHILS % 79.3 % (39.0-77.0); PLATELET COUNT 158 10^3/UL (140-415); RED BLOOD COUNT 3.12 10^6/ul (4.70-6.10); RED CELL DISTRIBUTION WIDTH 15.3 % (11.5-14.5); WHITE BLOOD COUNT 7.9 10^3/ul (4.8-10.8)
[2016-07-13 08:33] LABS: POTASSIUM 4.5 mmol/L (3.5-5.1)
[2016-07-13 08:36] LABS: CREATININE 1.31 mg/dl (0.61-1.24)
[2016-07-13 08:37] LABS: CALCIUM 9.3 mg/dl (8.4-10.2)
[2016-07-13] MEDS ORDERED: ALBUTEROL/IPRATROPIUM (NEB) 3 ML AMP HHN PRN (09:00)
[2016-07-13] MEDS ORDERED: ASPIRIN 325 MG TAB PO SCH (09:00)
[2016-07-13] MEDS ORDERED: hydrALAzine 20 MG INJ IV PRN (09:00)
--- NOTE | 2016-07-13 09:35 | RADRPT ---
Vent Rate: 83 bpm RR Interval: 0 msec OH Interval: 162 msec QRS Duration: 86 msec QT Interval: 382 msec QTC Interval: 448 msec P-R-T [place]: 55 - -39 - 70 degrees Sinus rhythm with occasional premature ventricular complexes Left axis deviation Abnormal ECG Electronically Signed By: Ivan Glaser [id number]
--- NOTE | 2016-07-13 12:09 | CONS ---
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 Blood pressure remains stable and congestive heart failure improves, would start Coreg in the next 1-2 days. Continue antiplatelet therapy and statin therapy. Consultation Date/Type/Reason Admit Date/Time Jul 12, 2016 at 04:20 Initial Consult Date Type of Consultation: cv 24 HR Interval Summary Free Text/Dictation Shortness of breath is better but still with symptoms of dyspnea with lying down and sleeping. Denies chest pain, lower extremity edema is improved but still present Exam/Review of Systems Vital Signs Vitals Vital Signs Date Time Temp Pulse Resp B/P Pulse Ox O2 Delivery O2 Flow Rate FiO2 07/13/16 12:05 75 07/13/16 11:10 97.8 22 149/69 97 07/13/16 10:48 Nasal Cannula 3.0 32 Intake and Output 07/12/16 07/12/16 07/13/16 15:00 23:00 07:00 Intake Total 400 ml Output Total 1600 ml Balance -1200 ml Exam Sitting in chair, no apparent distress, obese Constitutional: alert, oriented Head: normocephalic Neck: supple Respiratory: other (Coarse breath sounds bilaterally, decreased at the bases with mild scattered crackles, no wheezing) Cardiovascular: other (S1-S2 heard), regular rate and rhythm, systolic murmur Gastrointestinal: bowel sounds, non-tender, soft Extremities: edema, other (No cyanosis) Results Result Diagram: 07/13/16 0810 07/13/16 0810 Results 24 hrs Laboratory Tests Test 07/12/16 12:50 07/12/16 13:50 07/12/16 16:46 07/12/16 18:32 Creatine Kinase 70 Creatine Kinase Index 3.3 Creatinine Kinase MB (Mass) 2.34 Troponin I 0.245 *H Bedside Glucose 72 157 99 Test 07/12/16 19:30 07/12/16 20:15 07/13/16 03:30 07/13/16 08:10 Troponin I 0.178 *H 0.111 Bedside Glucose 140 White Blood Count 7.9 Red Blood Count 3.12 L Hemoglobin 8.8 L Hematocrit 28.2 L Mean Corpuscular Volume 90.4 Mean Corpuscular Hemoglobin 28.2 L Mean Corpuscular Hemoglobin Concent 31.2 L Red Cell Distribution Width 15.3 H Platelet Count 158 Mean Platelet Volume 11.9 H Neutrophils % 79.3 H Lymphocytes % 8.3 L Monocytes % 9.8 Eosinophils % 1.9 Basophils % 0.3 Nucleated Red Blood Cells % 0.0 Neutrophils # 6.3 Lymphocytes # 0.7 L Monocytes # 0.8 Eosinophils # 0.2 Basophils # 0.0 Nucleated Red Blood Cells # 0.0 Sodium Level 142 Potassium Level 4.5 Chloride Level 104 Carbon Dioxide Level 27 Anion Gap 16 Blood Urea Nitrogen 34 H Creatinine 1.31 H Glucose Level 94 # Calcium Level 9.3 Test 07/13/16 08:13 Bedside Glucose 95 Medications Medications Current Medications Metoclopramide HCl (Reglan) 10 mg Q6H PRN IV NAUSEA AND/OR VOMITING; Start at 04:30 Nitroglycerin (Nitroglycerin (Sl Tab) 0.4 Mg) 1 tab Q5M PRN SL CHEST PAIN; Start 07/12/16 at 04:30 Acetaminophen (Tylenol Liquid) 650 mg Q6H PRN PO PAIN LEVEL 1-3 OR FEVER; Start 07/12/16 at 04:30 Acetaminophen/ Hydrocodone Bitart ([place] (5/325)) 1 tab Q6H PRN PO PAIN LEVEL 4 -6; Start 07/12/16 at 04:30 Acetaminophen/ Hydrocodone Bitart ([place] (5/325)) 2 tab Q6H PRN PO PAIN LEVEL 7 -10; Start 07/12/16 at 04:30 Lorazepam (Ativan) 0.5 mg Q4 PRN IV ANXIETY; Start 07/12/16 at 04:30 Famotidine (Pepcid) 20 mg Q12 PO Last administered on 07/13/16 08:15; Admin Dose 20 MG; Start 07/12/16 at 09:00 Clopidogrel Bisulfate (plaVIX) 75 mg DAILY PO Last administered on 07/13/16 08 :15; Admin Dose 75 MG; Start 07/12/16 at 09:00 Miscellaneous Information 1 ea NOTE XX ; Start 07/12/16 at 04:30 Glucose (Glutose) 15 gm Q15M PRN PO DECREASED GLUCOSE; Start 07/12/16 at 04:30 Glucose (Glutose) 22.5 gm Q15M PRN PO DECREASED GLUCOSE; Start 07/12/16 at 04: 30 Dextrose (D50w Syringe) 25 ml Q15M PRN IV DECREASED GLUCOSE; Start 07/12/16 at 04:30 Dextrose (D50w Syringe) 50 ml Q15M PRN IV DECREASED GLUCOSE; Start 07/12/16 at 04:30 Glucagon (Glucagen) 1 mg Q15M PRN IM DECREASED GLUCOSE; Start 07/12/16 at 04:30 Glucose (Glutose) 15 gm Q15M PRN BUCCAL DECREASED GLUCOSE; Start 07/12/16 at 04 :30 Aspirin (Aspirin) 81 mg DAILY PO Last administered on 07/13/16 08:15; Admin Dose 81 MG; Start 07/13/16 at 09:00 Atorvastatin Calcium (Lipitor) 40 mg DAILY@21 PO Last administered on 20:10; Admin Dose 40 MG; Start 07/12/16 at 21:00 Hydralazine HCl (Apresoline) 10 mg Q6H PRN IV ELEVATED BLOOD PRESSURE Last administered on 07/13/16 10:17; Admin Dose 10 MG; Start 07/13/16 at 09:00 Dayron Davenport DO Jul 13, 2016 12:09
[2016-07-13] MEDS ORDERED: BUMETANIDE 1 MG INJ IV ONE (12:30)
[2016-07-13] MEDS: LISINOPRIL 5 MG TAB PO SCH (12:47)
--- NOTE | 2016-07-13 12:47 | CONS ---
Date/Time of Note Date/Time of Note DATE: 07/13/16 TIME: 12:42 Consult Date/Type/Reason Admit Date/Time Jul 12, 2016 at 04:20 Initial Consult Date Type of Consultation: pulmonary Subjective Slowly improving appears less short of breath today Objective Vital Signs Date Time Temp Pulse Resp B/P Pulse Ox O2 Delivery O2 Flow Rate FiO2 07/13/16 12:05 75 07/13/16 11:10 97.8 22 149/69 97 07/13/16 10:48 Nasal Cannula 3.0 32 Intake and Output 07/12/16 07/12/16 07/13/16 15:00 23:00 07:00 Intake Total 400 ml Output Total 1600 ml Balance -1200 ml Exam GENERAL: Obese gentleman comfortable at rest VITAL SIGNS: per chart NECK: Supple. No JVD or lymphadenopathy. CARDIAC EXAM: S1, S2. No added sounds or murmurs. CHEST: Diminished air entry both lung bases ABDOMEN: Soft, nontender. No guarding or rebound. EXTREMITIES: No cyanosis, clubbing or edema. NEUROLOGIC: Generalized weakness. No focal deficits. Results/Medications Result Diagram: 07/13/16 0810 07/13/16 0810 Results 24 hrs Laboratory Tests Test 07/12/16 12:50 07/12/16 13:50 07/12/16 16:46 07/12/16 18:32 Creatine Kinase 70 Creatine Kinase Index 3.3 Creatinine Kinase MB (Mass) 2.34 Troponin I 0.245 *H Bedside Glucose 72 157 99 Test 07/12/16 19:30 07/12/16 20:15 07/13/16 03:30 07/13/16 08:10 Troponin I 0.178 *H 0.111 Bedside Glucose 140 White Blood Count 7.9 Red Blood Count 3.12 L Hemoglobin 8.8 L Hematocrit 28.2 L Mean Corpuscular Volume 90.4 Mean Corpuscular Hemoglobin 28.2 L Mean Corpuscular Hemoglobin Concent 31.2 L Red Cell Distribution Width 15.3 H Platelet Count 158 Mean Platelet Volume 11.9 H Neutrophils % 79.3 H Lymphocytes % 8.3 L Monocytes % 9.8 Eosinophils % 1.9 Basophils % 0.3 Nucleated Red Blood Cells % 0.0 Neutrophils # 6.3 Lymphocytes # 0.7 L Monocytes # 0.8 Eosinophils # 0.2 Basophils # 0.0 Nucleated Red Blood Cells # 0.0 Sodium Level 142 Potassium Level 4.5 Chloride Level 104 Carbon Dioxide Level 27 Anion Gap 16 Blood Urea Nitrogen 34 H Creatinine 1.31 H Glucose Level 94 # Calcium Level 9.3 Test 07/13/16 08:13 Bedside Glucose 95 Medications Current Medications Metoclopramide HCl (Reglan) 10 mg Q6H PRN IV NAUSEA AND/OR VOMITING; Start at 04:30 Nitroglycerin (Nitroglycerin (Sl Tab) 0.4 Mg) 1 tab Q5M PRN SL CHEST PAIN; Start 07/12/16 at 04:30 Acetaminophen (Tylenol Liquid) 650 mg Q6H PRN PO PAIN LEVEL 1-3 OR FEVER; Start 07/12/16 at 04:30 Acetaminophen/ Hydrocodone Bitart ([place] (5/325)) 1 tab Q6H PRN PO PAIN LEVEL 4 -6; Start 07/12/16 at 04:30 Acetaminophen/ Hydrocodone Bitart ([place] (5/325)) 2 tab Q6H PRN PO PAIN LEVEL 7 -10; Start 07/12/16 at 04:30 Lorazepam (Ativan) 0.5 mg Q4 PRN IV ANXIETY; Start 07/12/16 at 04:30 Famotidine (Pepcid) 20 mg Q12 PO Last administered on 07/13/16 08:15; Admin Dose 20 MG; Start 07/12/16 at 09:00 Clopidogrel Bisulfate (plaVIX) 75 mg DAILY PO Last administered on 07/13/16 08 :15; Admin Dose 75 MG; Start 07/12/16 at 09:00 Miscellaneous Information 1 ea NOTE XX ; Start 07/12/16 at 04:30 Glucose (Glutose) 15 gm Q15M PRN PO DECREASED GLUCOSE; Start 07/12/16 at 04:30 Glucose (Glutose) 22.5 gm Q15M PRN PO DECREASED GLUCOSE; Start 07/12/16 at 04: 30 Dextrose (D50w Syringe) 25 ml Q15M PRN IV DECREASED GLUCOSE; Start 07/12/16 at 04:30 Dextrose (D50w Syringe) 50 ml Q15M PRN IV DECREASED GLUCOSE; Start 07/12/16 at 04:30 Glucagon (Glucagen) 1 mg Q15M PRN IM DECREASED GLUCOSE; Start 07/12/16 at 04:30 Glucose (Glutose) 15 gm Q15M PRN BUCCAL DECREASED GLUCOSE; Start 07/12/16 at 04 :30 Aspirin (Aspirin) 81 mg DAILY PO Last administered on 07/13/16 08:15; Admin Dose 81 MG; Start 07/13/16 at 09:00 Atorvastatin Calcium (Lipitor) 40 mg DAILY@21 PO Last administered on 20:10; Admin Dose 40 MG; Start 07/12/16 at 21:00 Hydralazine HCl 10 mg 10 mg Q6H PRN IV ELEVATED BLOOD PRESSURE Last administered on 07/13/16 10:17; Admin Dose 10 MG; Start 07/13/16 at 09:00 Bumetanide/ Dextrose (Bumex/D5W) 30 ml @ 10 mls/hr Q3H ONCE IV ; Start 07/13/16 at 13:00; Stop 07/13/16 at 15:59 Lisinopril (Zestril) 5 mg DAILY PO ; Start 07/13/16 at 13:00 Assessment/Plan Chief Complaint/Hosp Course Assessment 1. Acute congestive cardiac failure, systolic and diastolic dysfunction 2. Acute hypoxemic respiratory failure 3. Right humeral fracture nondisplaced 4. Anemia unclear etiology 5. Probable underlying obstructive sleep apnea Plan 1. Continue diuresis per cardiology agree with LEONIE inhibitor and statin and aspirin 2. Continue supplemental O2 3. Outpatient sleep study possible underlying obstructive sleep apnea 4. Orthopedic recommendations, Dr. Maloney contacted Problems: MARY BETH VIGIL MD, [facility] Jul 13, 2016 12:47
[2016-07-13] MEDS ORDERED: BUMETANIDE 3 MG in DEXTROSE 5% 18 ML IV ONE (13:00)
[2016-07-13] MEDS: ATORVASTATIN 40 MG TAB PO SCH (20:11)
[2016-07-14] VITALS (13 sets, daily range): BP systolic 87–152; BP diastolic 50–81; PULSE 58–112; RESP 18–21
[2016-07-14] MEDS: BUMETANIDE 1 MG INJ IV SCH ×2 (05:48→18:00)
[2016-07-14 07:03] LABS: ADD SCAN DIFF NO
[2016-07-14 07:06] LABS: BASOPHILS % 0.4 % (0.0-2.0); EOSINOPHILS # 0.2 10^3/ul (0.0-0.5); EOSINOPHILS % 2.3 % (0.0-7.0); HEMATOCRIT 26.3 % (42.0-52.0); HEMOGLOBIN 8.2 g/dl (14.0-18.0); LYMPHOCYTES # 1.2 10^3/ul (0.8-2.9); LYMPHOCYTES % 14.6 % (15.0-51.0); MEAN CORPUSCULAR HGB CONC 31.2 g/dl (32.0-37.0); MEAN CORPUSCULAR VOLUME 89.8 fl (82.0-101.0); MEAN PLATELET VOLUME 12.1 fl (7.4-10.4); MONOCYTE # 0.7 10^3/ul (0.3-0.9); MONOCYTES % 8.4 % (0.0-11.0); NEUTROPHIL # 6.1 10^3/ul (1.6-7.5); NEUTROPHILS % 73.9 % (39.0-77.0); PLATELET COUNT 148 10^3/UL (140-415); RED BLOOD COUNT 2.93 10^6/ul (4.70-6.10); RED CELL DISTRIBUTION WIDTH 15.2 % (11.5-14.5); WHITE BLOOD COUNT 8.2 10^3/ul (4.8-10.8)
[2016-07-14 07:29] LABS: CALCIUM 9.1 mg/dl (8.4-10.2); CREATININE 1.44 mg/dl (0.61-1.24); POTASSIUM 4.9 mmol/L (3.5-5.1)
[2016-07-14] MEDS: INSULIN ASPART [NOVOLOG] 3 ML PEN SC SCH ×4 (07:55→20:54)
[2016-07-14] MEDS: ASPIRIN 81 MG TAB PO SCH (08:15)
[2016-07-14] MEDS: FAMOTIDINE 20 MG TAB PO SCH ×2 (08:15→20:53)
[2016-07-14] MEDS: CLOPIDOGREL 75 MG TAB PO SCH (08:15)
[2016-07-14] MEDS: LISINOPRIL 5 MG TAB PO SCH (08:16)
--- NOTE | 2016-07-14 11:10 | PN ---
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 Blood pressure remains stable and congestive heart failure improves, would start Coreg in the next 1-2 days. Continue antiplatelet therapy and statin therapy. Subjective 24 Hr Interval Summary Free Text/Dictation The patient with no change Exam/Review of Systems Vital Signs Vitals Vital Signs Date Time Temp Pulse Resp B/P Pulse Ox O2 Delivery O2 Flow Rate FiO2 07/14/16 08:27 86 07/14/16 07:32 99.9 20 152/81 97 07/14/16 06:26 3.0 07/13/16 20:00 Nasal Cannula 07/13/16 10:48 32 Intake and Output 07/13/16 07/13/16 07/14/16 14:59 22:59 06:59 Intake Total 710 ml 250 ml Output Total 1600 ml 2000 ml Balance -890 ml -1750 ml Results Result Diagram: 07/14/16 0534 07/14/16 0534 Results 24 hrs Laboratory Tests Test 07/13/16 12:44 07/13/16 17:50 07/13/16 20:10 07/14/16 05:34 Bedside Glucose 143 82 154 White Blood Count 8.2 Red Blood Count 2.93 L Hemoglobin 8.2 L Hematocrit 26.3 L Mean Corpuscular Volume 89.8 Mean Corpuscular Hemoglobin 28.0 L Mean Corpuscular Hemoglobin Concent 31.2 L Red Cell Distribution Width 15.2 H Platelet Count 148 Mean Platelet Volume 12.1 H Neutrophils % 73.9 Lymphocytes % 14.6 L Monocytes % 8.4 Eosinophils % 2.3 Basophils % 0.4 Nucleated Red Blood Cells % 0.0 Neutrophils # 6.1 Lymphocytes # 1.2 Monocytes # 0.7 Eosinophils # 0.2 Basophils # 0.0 Nucleated Red Blood Cells # 0.0 Sodium Level 138 Potassium Level 4.9 Chloride Level 102 Carbon Dioxide Level 29 Anion Gap 12 Blood Urea Nitrogen 42 H Creatinine 1.44 H Glucose Level 88 Calcium Level 9.1 Magnesium Level 1.8 Test 07/14/16 07:50 Bedside Glucose 133 Medications Medications Current Medications Metoclopramide HCl (Reglan) 10 mg Q6H PRN IV NAUSEA AND/OR VOMITING; Start at 04:30 Nitroglycerin (Nitroglycerin (Sl Tab) 0.4 Mg) 1 tab Q5M PRN SL CHEST PAIN; Start 07/12/16 at 04:30 Acetaminophen (Tylenol Liquid) 650 mg Q6H PRN PO PAIN LEVEL 1-3 OR FEVER; Start 07/12/16 at 04:30 Acetaminophen/ Hydrocodone Bitart ([place] (5/325)) 1 tab Q6H PRN PO PAIN LEVEL 4 -6; Start 07/12/16 at 04:30 Acetaminophen/ Hydrocodone Bitart ([place] (5/325)) 2 tab Q6H PRN PO PAIN LEVEL 7 -10; Start 07/12/16 at 04:30 Lorazepam (Ativan) 0.5 mg Q4 PRN IV ANXIETY; Start 07/12/16 at 04:30 Famotidine (Pepcid) 20 mg Q12 PO Last administered on 07/14/16 08:15; Admin Dose 20 MG; Start 07/12/16 at 09:00 Clopidogrel Bisulfate (plaVIX) 75 mg DAILY PO Last administered on 07/14/16 08 :15; Admin Dose 75 MG; Start 07/12/16 at 09:00 Miscellaneous Information 1 ea NOTE XX ; Start 07/12/16 at 04:30 Glucose (Glutose) 15 gm Q15M PRN PO DECREASED GLUCOSE; Start 07/12/16 at 04:30 Glucose (Glutose) 22.5 gm Q15M PRN PO DECREASED GLUCOSE; Start 07/12/16 at 04: 30 Dextrose (D50w Syringe) 25 ml Q15M PRN IV DECREASED GLUCOSE; Start 07/12/16 at 04:30 Dextrose (D50w Syringe) 50 ml Q15M PRN IV DECREASED GLUCOSE; Start 07/12/16 at 04:30 Glucagon (Glucagen) 1 mg Q15M PRN IM DECREASED GLUCOSE; Start 07/12/16 at 04:30 Glucose (Glutose) 15 gm Q15M PRN BUCCAL DECREASED GLUCOSE; Start 07/12/16 at 04 :30 Aspirin (Aspirin) 81 mg DAILY PO Last administered on 07/14/16 08:15; Admin Dose 81 MG; Start 07/13/16 at 09:00 Atorvastatin Calcium (Lipitor) 40 mg DAILY@21 PO Last administered on 20:11; Admin Dose 40 MG; Start 07/12/16 at 21:00 Hydralazine HCl (Apresoline) 10 mg Q6H PRN IV ELEVATED BLOOD PRESSURE Last administered on 07/13/16 10:17; Admin Dose 10 MG; Start 07/13/16 at 09:00 Lisinopril (Zestril) 5 mg DAILY PO Last administered on 07/14/16 08:16; Admin Dose 5 MG; Start 07/13/16 at 13:00 ANIL SARMIENTO MD Jul 14, 2016 11:09
--- NOTE | 2016-07-14 12:49 | PN ---
Date/Time of Note Date/Time of Note DATE: 07/14/16 TIME: 12:47 Assessment/Plan VTE Prophylaxis VTE Prophylaxis Intervention: LMWH Lines/Catheters IV [facility] Type [facility]from [email or web address] Saline Lock Urinary Cath still in place: Yes Reason Cath still needed: urinary retention Assessment/Plan Problems: (1) Acute decompensated heart failure Status: Acute Comment: He has been started LEONIE inhibitor but with this tachycardia most again in the low-dose beta-abhay. Will titrate to effect (2) Uncontrolled hypertension Status: Acute Comment: Able to tolerate medication (3) Acute and chronic respiratory failure with hypoxia Status: Acute Comment: We will check bedside spirometry after we get a little bit more diuresis (4) Fracture of neck of humerus Status: Acute Comment: Awaiting orthopedic consult Qualifiers: Encounter type: initial encounter Fracture type: closed Laterality: right Qualified Code: S42.211A - Fracture of neck of humerus, right, closed, initial encounter (5) Renal insufficiency Status: Acute Comment: He is holding study Subjective 24 Hr Interval Summary Free Text/Dictation Older gentleman lying in bed who appears to be somewhat short of breath Constitutional: no complaints (Denies fever chills or sweats) ENT: other (Complains of dizziness) Respiratory: other (Reports his breathing is improved) Cardiovascular: no complaints (Denies all symptoms) Gastrointestinal: no complaints Exam/Review of Systems Vital Signs Vitals Vital Signs Date Time Temp Pulse Resp B/P Pulse Ox O2 Delivery O2 Flow Rate FiO2 07/14/16 12:02 112 07/14/16 11:54 97.9 20 148/70 98 07/14/16 08:10 Nasal Cannula 3.0 07/13/16 10:48 32 Intake and Output 07/13/16 07/13/16 07/14/16 15:00 23:00 07:00 Intake Total 710 ml 250 ml Output Total 1600 ml 2000 ml Balance -890 ml -1750 ml Exam Constitutional: alert, oriented Neck: supple Respiratory: crackles/rales, wheezing Cardiovascular: nl pulses, regular rate and rhythm Gastrointestinal: nl liver, spleen, non-tender, soft Results Result Diagram: 07/14/16 0534 07/14/16 0534 Results 24 hrs Laboratory Tests Test 07/13/16 17:50 07/13/16 20:10 07/14/16 05:34 07/14/16 07:50 Bedside Glucose 82 154 133 White Blood Count 8.2 Red Blood Count 2.93 L Hemoglobin 8.2 L Hematocrit 26.3 L Mean Corpuscular Volume 89.8 Mean Corpuscular Hemoglobin 28.0 L Mean Corpuscular Hemoglobin Concent 31.2 L Red Cell Distribution Width 15.2 H Platelet Count 148 Mean Platelet Volume 12.1 H Neutrophils % 73.9 Lymphocytes % 14.6 L Monocytes % 8.4 Eosinophils % 2.3 Basophils % 0.4 Nucleated Red Blood Cells % 0.0 Neutrophils # 6.1 Lymphocytes # 1.2 Monocytes # 0.7 Eosinophils # 0.2 Basophils # 0.0 Nucleated Red Blood Cells # 0.0 Sodium Level 138 Potassium Level 4.9 Chloride Level 102 Carbon Dioxide Level 29 Anion Gap 12 Blood Urea Nitrogen 42 H Creatinine 1.44 H Glucose Level 88 Calcium Level 9.1 Magnesium Level 1.8 Test 07/14/16 12:00 Bedside Glucose 150 Medications Medications Current Medications Metoclopramide HCl (Reglan) 10 mg Q6H PRN IV NAUSEA AND/OR VOMITING; Start at 04:30 Nitroglycerin (Nitroglycerin (Sl Tab) 0.4 Mg) 1 tab Q5M PRN SL CHEST PAIN; Start 07/12/16 at 04:30 Acetaminophen (Tylenol Liquid) 650 mg Q6H PRN PO PAIN LEVEL 1-3 OR FEVER; Start 07/12/16 at 04:30 Acetaminophen/ Hydrocodone Bitart ([place] (5/325)) 1 tab Q6H PRN PO PAIN LEVEL 4 -6; Start 07/12/16 at 04:30 Acetaminophen/ Hydrocodone Bitart ([place] (5/325)) 2 tab Q6H PRN PO PAIN LEVEL 7 -10; Start 07/12/16 at 04:30 Lorazepam (Ativan) 0.5 mg Q4 PRN IV ANXIETY; Start 07/12/16 at 04:30 Famotidine (Pepcid) 20 mg Q12 PO Last administered on 07/14/16 08:15; Admin Dose 20 MG; Start 07/12/16 at 09:00 Clopidogrel Bisulfate (plaVIX) 75 mg DAILY PO Last administered on 07/14/16 08 :15; Admin Dose 75 MG; Start 07/12/16 at 09:00 Miscellaneous Information 1 ea NOTE XX ; Start 07/12/16 at 04:30 Glucose (Glutose) 15 gm Q15M PRN PO DECREASED GLUCOSE; Start 07/12/16 at 04:30 Glucose (Glutose) 22.5 gm Q15M PRN PO DECREASED GLUCOSE; Start 07/12/16 at 04: 30 Dextrose (D50w Syringe) 25 ml Q15M PRN IV DECREASED GLUCOSE; Start 07/12/16 at 04:30 Dextrose (D50w Syringe) 50 ml Q15M PRN IV DECREASED GLUCOSE; Start 07/12/16 at 04:30 Glucagon (Glucagen) 1 mg Q15M PRN IM DECREASED GLUCOSE; Start 07/12/16 at 04:30 Glucose (Glutose) 15 gm Q15M PRN BUCCAL DECREASED GLUCOSE; Start 07/12/16 at 04 :30 Aspirin (Aspirin) 81 mg DAILY PO Last administered on 07/14/16 08:15; Admin Dose 81 MG; Start 07/13/16 at 09:00 Atorvastatin Calcium (Lipitor) 40 mg DAILY@ PO Last administered on 20:11; Admin Dose 40 MG; Start 07/12/16 at 21:00 Hydralazine HCl (Apresoline) 10 mg Q6H PRN IV ELEVATED BLOOD PRESSURE Last administered on 07/13/16 10:17; Admin Dose 10 MG; Start 07/13/16 at 09:00 Lisinopril (Zestril) 5 mg DAILY PO Last administered on 07/14/16 08:16; Admin Dose 5 MG; Start 07/13/16 at 13:00 CIPRIANO REBOLLAR MD Jul 14, 2016 12:49
[2016-07-14] MEDS ORDERED: FUROSEMIDE 20 MG INJ IV ONE (13:00)
--- NOTE | 2016-07-14 15:53 | CONS ---
Date/Time of Note Date/Time of Note DATE: 07/14/16 TIME: 15:51 Consult Date/Type/Reason Admit Date/Time Jul 12, 2016 at 04:20 Initial Consult Date Type of Consultation: pulmonary Subjective No events. On 3 L via NC. Objective Vital Signs Date Time Temp Pulse Resp B/P Pulse Ox O2 Delivery O2 Flow Rate FiO2 07/14/16 15:14 98.8 108 20 87/50 97 07/14/16 08:10 Nasal Cannula 3.0 07/13/16 10:48 32 Intake and Output 07/13/16 07/13/16 07/14/16 15:00 23:00 07:00 Intake Total 710 ml 250 ml Output Total 1600 ml 2000 ml Balance -890 ml -1750 ml Exam CARDIAC EXAM: S1, S2. 2/6 DAVID CHEST: Bibasilar rales ABDOMEN: Soft, nontender. No guarding or rebound. EXTREMITIES: No cyanosis, clubbing, + edema Results/Medications Result Diagram: 07/14/16 0534 07/14/16 0534 Results 24 hrs Laboratory Tests Test 07/13/16 17:50 07/13/16 20:10 07/14/16 05:34 07/14/16 07:50 Bedside Glucose 82 154 133 White Blood Count 8.2 Red Blood Count 2.93 L Hemoglobin 8.2 L Hematocrit 26.3 L Mean Corpuscular Volume 89.8 Mean Corpuscular Hemoglobin 28.0 L Mean Corpuscular Hemoglobin Concent 31.2 L Red Cell Distribution Width 15.2 H Platelet Count 148 Mean Platelet Volume 12.1 H Neutrophils % 73.9 Lymphocytes % 14.6 L Monocytes % 8.4 Eosinophils % 2.3 Basophils % 0.4 Nucleated Red Blood Cells % 0.0 Neutrophils # 6.1 Lymphocytes # 1.2 Monocytes # 0.7 Eosinophils # 0.2 Basophils # 0.0 Nucleated Red Blood Cells # 0.0 Sodium Level 138 Potassium Level 4.9 Chloride Level 102 Carbon Dioxide Level 29 Anion Gap 12 Blood Urea Nitrogen 42 H Creatinine 1.44 H Glucose Level 88 Calcium Level 9.1 Magnesium Level 1.8 Test 07/14/16 12:00 Bedside Glucose 150 Medications Current Medications Metoclopramide HCl (Reglan) 10 mg Q6H PRN IV NAUSEA AND/OR VOMITING; Start at 04:30 Nitroglycerin (Nitroglycerin (Sl Tab) 0.4 Mg) 1 tab Q5M PRN SL CHEST PAIN; Start 07/12/16 at 04:30 Acetaminophen (Tylenol Liquid) 650 mg Q6H PRN PO PAIN LEVEL 1-3 OR FEVER; Start 07/12/16 at 04:30 Acetaminophen/ Hydrocodone Bitart ([place] (5/325)) 1 tab Q6H PRN PO PAIN LEVEL 4 -6; Start 07/12/16 at 04:30 Acetaminophen/ Hydrocodone Bitart ([place] (5/325)) 2 tab Q6H PRN PO PAIN LEVEL 7 -10; Start 07/12/16 at 04:30 Lorazepam (Ativan) 0.5 mg Q4 PRN IV ANXIETY; Start 07/12/16 at 04:30 Famotidine (Pepcid) 20 mg Q12 PO Last administered on 07/14/16 08:15; Admin Dose 20 MG; Start 07/12/16 at 09:00 Clopidogrel Bisulfate (plaVIX) 75 mg DAILY PO Last administered on 07/14/16 08 :15; Admin Dose 75 MG; Start 07/12/16 at 09:00 Miscellaneous Information 1 ea NOTE XX ; Start 07/12/16 at 04:30 Glucose (Glutose) 15 gm Q15M PRN PO DECREASED GLUCOSE; Start 07/12/16 at 04:30 Glucose (Glutose) 22.5 gm Q15M PRN PO DECREASED GLUCOSE; Start 07/12/16 at 04: 30 Dextrose (D50w Syringe) 25 ml Q15M PRN IV DECREASED GLUCOSE; Start 07/12/16 at 04:30 Dextrose (D50w Syringe) 50 ml Q15M PRN IV DECREASED GLUCOSE; Start 07/12/16 at 04:30 Glucagon (Glucagen) 1 mg Q15M PRN IM DECREASED GLUCOSE; Start 07/12/16 at 04:30 Glucose (Glutose) 15 gm Q15M PRN BUCCAL DECREASED GLUCOSE; Start 07/12/16 at 04 :30 Aspirin (Aspirin) 81 mg DAILY PO Last administered on 07/14/16 08:15; Admin Dose 81 MG; Start 07/13/16 at 09:00 Atorvastatin Calcium (Lipitor) 40 mg DAILY@21 PO Last administered on 20:11; Admin Dose 40 MG; Start 07/12/16 at 21:00 Hydralazine HCl (Apresoline) 10 mg Q6H PRN IV ELEVATED BLOOD PRESSURE Last administered on 07/13/16 10:17; Admin Dose 10 MG; Start 07/13/16 at 09:00 Lisinopril (Zestril) 5 mg DAILY PO Last administered on 07/14/16 08:16; Admin Dose 5 MG; Start 07/13/16 at 13:00 Carvedilol (Coreg) 3.125 mg BID PO Last administered on 07/14/16 14:36; Admin Dose 3.125 MG; Start 07/14/16 at 13:00 Assessment/Plan Additional Assessment/Plan IMP 1. Acute congestive cardiac failure, systolic and diastolic dysfunction 2. Acute hypoxemic respiratory failure 3. DWAYNE + [facility] RECS: 1. Continue diuresis per cardiology agree with LEONIE inhibitor and statin and aspirin 2. Continue supplemental O2 3. Outpatient sleep study GEORGINA AQUINO MD Jul 14, 2016 15:53
[2016-07-14] MEDS: ATORVASTATIN 40 MG TAB PO SCH (20:53)
[2016-07-15] VITALS (11 sets, daily range): BP systolic 91–111; BP diastolic 49–58; PULSE 53–66; RESP 18–20
[2016-07-15] MEDS: BUMETANIDE 1 MG INJ IV SCH ×3 (05:42→08:32)
--- NOTE | 2016-07-15 07:45 | RADRPT ---
PROCEDURE: XR Chest 1 view. CLINICAL INDICATION: Shortness of breath. TECHNIQUE: AP views of the chest were obtained. COMPARISON: July 12, 2016 FINDINGS: The heart is large. Calcified atherosclerosis is noted in the aorta. Chronic elevation of the right hemidiaphragm is identified. Mild central pulmonary vascular congestion is seen. Bilateral lower lobe infiltrates have decreased. Mild residual remains. No pneumothorax is seen. Osseous structu res are intact. IMPRESSION: Cardiomegaly with calcified atherosclerosis in the aorta. Chronic elevation of the right hemidiaphragm. Mild central pulmonary vascular congestion. Interval decrease in bilateral lower lobe infiltrates. Mild residual remains. RPTAT: AA .Rudy Washington MD, MD Date Time Electronically viewed and signed by .Rudy Washington MD, MD on 07/15/2016 07:45 .P/
[2016-07-15] MEDS: INSULIN ASPART [NOVOLOG] 3 ML PEN SC SCH ×4 (07:55→20:53)
[2016-07-15] MEDS: FAMOTIDINE 20 MG TAB PO SCH ×2 (08:24→20:54)
[2016-07-15] MEDS: LISINOPRIL 5 MG TAB PO SCH (08:24)
[2016-07-15] MEDS: CLOPIDOGREL 75 MG TAB PO SCH (08:24)
[2016-07-15] MEDS: ASPIRIN 81 MG TAB PO SCH (08:25)
[2016-07-15 11:28] LABS: ADD SCAN DIFF NO
[2016-07-15 11:32] LABS: BASOPHILS % 0.3 % (0.0-2.0); EOSINOPHILS # 0.1 10^3/ul (0.0-0.5); EOSINOPHILS % 1.2 % (0.0-7.0); HEMATOCRIT 24.3 % (42.0-52.0); HEMOGLOBIN 7.4 g/dl (14.0-18.0); LYMPHOCYTES # 1.1 10^3/ul (0.8-2.9); LYMPHOCYTES % 10.5 % (15.0-51.0); MEAN CORPUSCULAR HEMOGLOBIN 26.8 pg (29.0-33.0); MEAN CORPUSCULAR HGB CONC 30.5 g/dl (32.0-37.0); MEAN PLATELET VOLUME 12.2 fl (7.4-10.4); NEUTROPHILS % 77.6 % (39.0-77.0); PLATELET COUNT 144 10^3/UL (140-415); RED BLOOD COUNT 2.76 10^6/ul (4.70-6.10); RED CELL DISTRIBUTION WIDTH 15.4 % (11.5-14.5); WHITE BLOOD COUNT 10.3 10^3/ul (4.8-10.8)
[2016-07-15 11:49] LABS: POTASSIUM 4.7 mmol/L (3.5-5.1)
[2016-07-15 11:52] LABS: CALCIUM 8.8 mg/dl (8.4-10.2); CREATININE 3.39 mg/dl (0.61-1.24)
--- NOTE | 2016-07-15 12:07 | PN ---
Date/Time of Note Date/Time of Note DATE: 07/15/16 TIME: 12:03 Assessment/Plan VTE Prophylaxis VTE Prophylaxis Intervention: LMWH Lines/Catheters IV [facility] Saline Lock Urinary Cath still in place: No Assessment/Plan Problems: (1) Acute decompensated heart failure Status: Acute Comment: He is improving nicely with diuresis and adjustment medications. His had a brisk response the usage of the beta-abhay, get a hold at this dosage of carvedilol. Continue care. (2) Uncontrolled hypertension Status: Acute Comment: Now well controlled. (3) Fracture of neck of humerus Status: Acute Comment: There are notes indicating that the orthopedist was contacted but we have not seen notes from him. I will recontact him Qualifiers: Encounter type: initial encounter Fracture type: closed Laterality: right Qualified Code: S42.211A - Fracture of neck of humerus, right, closed, initial encounter (4) Acute and chronic respiratory failure with hypoxia Status: Acute Comment: Improved nicely (5) Renal insufficiency Status: Resolved Comment: Resolved Subjective 24 Hr Interval Summary Free Text/Dictation Patient reports he is feeling better Constitutional: no complaints Respiratory: no complaints Cardiovascular: no complaints Gastrointestinal: no complaints Genitourinary: no complaints Exam/Review of Systems Vital Signs Vitals Vital Signs Date Time Temp Pulse Resp B/P Pulse Ox O2 Delivery O2 Flow Rate FiO2 07/15/16 11:09 98.2 50 18 100/54 100 07/15/16 11:03 Nasal Cannula 3.0 07/13/16 10:48 32 Intake and Output 07/14/16 07/14/16 07/15/16 15:00 23:00 07:00 Intake Total 200 ml Output Total 3200 ml 600 ml Balance -3200 ml -400 ml Exam Constitutional: alert, oriented Neck: non-tender, supple Respiratory: clear to auscultation, crackles/rales (Basilar crackles) Cardiovascular: nl pulses, regular rate and rhythm Gastrointestinal: nl liver, spleen, non-tender, soft Results Result Diagram: 07/15/16 1051 07/15/16 1051 Results 24 hrs Laboratory Tests Test 07/14/16 14:20 07/14/16 17:48 07/14/16 20:52 07/15/16 07:43 Hepatitis B Surface Antigen NEGATIVE Hepatitis C Antibody NEGATIVE Bedside Glucose 136 155 105 Test 07/15/16 10:51 07/15/16 11:50 White Blood Count 10.3 # Red Blood Count 2.76 L Hemoglobin 7.4 L Hematocrit 24.3 L Mean Corpuscular Volume 88.0 Mean Corpuscular Hemoglobin 26.8 L Mean Corpuscular Hemoglobin Concent 30.5 L Red Cell Distribution Width 15.4 H Platelet Count 144 Mean Platelet Volume 12.2 H Neutrophils % 77.6 H Lymphocytes % 10.5 L Monocytes % 10.0 Eosinophils % 1.2 Basophils % 0.3 Nucleated Red Blood Cells % 0.0 Neutrophils # 8.0 H Lymphocytes # 1.1 Monocytes # 1.0 H Eosinophils # 0.1 Basophils # 0.0 Nucleated Red Blood Cells # 0.0 Sodium Level 134 L Potassium Level 4.7 Chloride Level 93 L Carbon Dioxide Level 27 Anion Gap 19 #H Blood Urea Nitrogen 67 H Creatinine 3.39 #H Glucose Level 159 Calcium Level 8.8 Bedside Glucose 151 Medications Medications Current Medications Metoclopramide HCl (Reglan) 10 mg Q6H PRN IV NAUSEA AND/OR VOMITING; Start at 04:30 Nitroglycerin (Nitroglycerin (Sl Tab) 0.4 Mg) 1 tab Q5M PRN SL CHEST PAIN; Start 07/12/16 at 04:30 Acetaminophen (Tylenol Liquid) 650 mg Q6H PRN PO PAIN LEVEL 1-3 OR FEVER; Start 07/12/16 at 04:30 Acetaminophen/ Hydrocodone Bitart ([place] (5/325)) 1 tab Q6H PRN PO PAIN LEVEL 4 -6; Start 07/12/16 at 04:30 Acetaminophen/ Hydrocodone Bitart ([place] (5/325)) 2 tab Q6H PRN PO PAIN LEVEL 7 -10; Start 07/12/16 at 04:30 Lorazepam (Ativan) 0.5 mg Q4 PRN IV ANXIETY; Start 07/12/16 at 04:30 Famotidine (Pepcid) 20 mg Q12 PO Last administered on 07/15/16 08:24; Admin Dose 20 MG; Start 07/12/16 at 09:00 Clopidogrel Bisulfate (plaVIX) 75 mg DAILY PO Last administered on 07/15/16 08 :24; Admin Dose 75 MG; Start 07/12/16 at 09:00 Miscellaneous Information 1 ea NOTE XX ; Start 07/12/16 at 04:30 Glucose (Glutose) 15 gm Q15M PRN PO DECREASED GLUCOSE; Start 07/12/16 at 04:30 Glucose (Glutose) 22.5 gm Q15M PRN PO DECREASED GLUCOSE; Start 07/12/16 at 04: 30 Dextrose (D50w Syringe) 25 ml Q15M PRN IV DECREASED GLUCOSE; Start 07/12/16 at 04:30 Dextrose (D50w Syringe) 50 ml Q15M PRN IV DECREASED GLUCOSE; Start 07/12/16 at 04:30 Glucagon (Glucagen) 1 mg Q15M PRN IM DECREASED GLUCOSE; Start 07/12/16 at 04:30 Glucose (Glutose) 15 gm Q15M PRN BUCCAL DECREASED GLUCOSE; Start 07/12/16 at 04 :30 Aspirin (Aspirin) 81 mg DAILY PO Last administered on 07/15/16 08:25; Admin Dose 81 MG; Start 07/13/16 at 09:00 Atorvastatin Calcium (Lipitor) 40 mg DAILY@21 PO Last administered on 20:53; Admin Dose 40 MG; Start 07/12/16 at 21:00 Hydralazine HCl (Apresoline) 10 mg Q6H PRN IV ELEVATED BLOOD PRESSURE Last administered on 07/13/16 10:17; Admin Dose 10 MG; Start 07/13/16 at 09:00 Lisinopril (Zestril) 5 mg DAILY PO Last administered on 07/15/16 08:24; Admin Dose 5 MG; Start 07/13/16 at 13:00 Carvedilol (Coreg) 3.125 mg BID PO Last administered on 07/14/16 14:36; Admin Dose 3.125 MG; Start 07/14/16 at 13:00 CIPRIANO REBOLLAR MD Jul 15, 2016 12:06
[2016-07-15 12:18] LABS: IRON 22 ug/dl (35-150)
[2016-07-15 12:27] LABS: TOTAL IRON BINDING CAPACITY 195 ug/dl (241-421)
[2016-07-15] MEDS ORDERED: DIPHENHYDRAMINE 25 MG CAP PO SCH (13:30)
[2016-07-15] MEDS ORDERED: ACETAMINOPHEN 325 MG TAB PO SCH (13:30)
--- NOTE | 2016-07-15 15:21 | CONS ---
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 Would DC LEONIE inhibitor as well as diuretics at the current time. Follow renal function closely, check renal ultrasound, consider nephrology consultation. Consultation Date/Type/Reason Admit Date/Time Jul 12, 2016 at 04:20 Type of Consultation: cv 24 HR Interval Summary Free Text/Dictation Patient with significant improvement in shortness of breath and lower extremity swelling. Denies chest pain, dizziness Exam/Review of Systems Vital Signs Vitals Vital Signs Date Time Temp Pulse Resp B/P Pulse Ox O2 Delivery O2 Flow Rate FiO2 07/15/16 15:13 98.5 60 18 108/56 100 07/15/16 11:03 Nasal Cannula 3.0 07/13/16 10:48 32 Intake and Output 07/14/16 07/14/16 07/15/16 15:00 23:00 07:00 Intake Total 200 ml Output Total 3200 ml 600 ml Balance -3200 ml -400 ml Exam No apparent distress, sitting in chair Constitutional: alert, obese, oriented Head: normocephalic Respiratory: other (Coarse breath sounds bilaterally, no wheezing) Cardiovascular: other (S1-S2 heard), regular rate and rhythm Gastrointestinal: bowel sounds, non-tender, other (No guarding), soft Extremities: edema (Trace) Results Result Diagram: 07/15/16 1051 07/15/16 1051 Results 24 hrs Laboratory Tests Test 07/14/16 17:48 07/14/16 20:52 07/15/16 07:43 07/15/16 10:51 Bedside Glucose 136 155 105 White Blood Count 10.3 # Red Blood Count 2.76 L Hemoglobin 7.4 L Hematocrit 24.3 L Mean Corpuscular Volume 88.0 Mean Corpuscular Hemoglobin 26.8 L Mean Corpuscular Hemoglobin Concent 30.5 L Red Cell Distribution Width 15.4 H Platelet Count 144 Mean Platelet Volume 12.2 H Neutrophils % 77.6 H Lymphocytes % 10.5 L Monocytes % 10.0 Eosinophils % 1.2 Basophils % 0.3 Nucleated Red Blood Cells % 0.0 Neutrophils # 8.0 H Lymphocytes # 1.1 Monocytes # 1.0 H Eosinophils # 0.1 Basophils # 0.0 Nucleated Red Blood Cells # 0.0 Sodium Level 134 L Potassium Level 4.7 Chloride Level 93 L Carbon Dioxide Level 27 Anion Gap 19 #H Blood Urea Nitrogen 67 H Creatinine 3.39 #H Glucose Level 159 Calcium Level 8.8 Iron Level 22 L Total Iron Binding Capacity 195 L Percent Iron Saturation 11 L Ferritin 505.0 H Test 07/15/16 11:50 Bedside Glucose 151 Medications Medications Current Medications Metoclopramide HCl (Reglan) 10 mg Q6H PRN IV NAUSEA AND/OR VOMITING; Start at 04:30 Nitroglycerin (Nitroglycerin (Sl Tab) 0.4 Mg) 1 tab Q5M PRN SL CHEST PAIN; Start 07/12/16 at 04:30 Acetaminophen (Tylenol Liquid) 650 mg Q6H PRN PO PAIN LEVEL 1-3 OR FEVER; Start 07/12/16 at 04:30 Acetaminophen/ Hydrocodone Bitart ([place] (5/325)) 1 tab Q6H PRN PO PAIN LEVEL 4 -6; Start 07/12/16 at 04:30 Acetaminophen/ Hydrocodone Bitart ([place] (5/325)) 2 tab Q6H PRN PO PAIN LEVEL 7 -10; Start 07/12/16 at 04:30 Lorazepam (Ativan) 0.5 mg Q4 PRN IV ANXIETY; Start 07/12/16 at 04:30 Famotidine (Pepcid) 20 mg Q12 PO Last administered on 07/15/16 08:24; Admin Dose 20 MG; Start 07/12/16 at 09:00 Clopidogrel Bisulfate (plaVIX) 75 mg DAILY PO Last administered on 07/15/16 08 :24; Admin Dose 75 MG; Start 07/12/16 at 09:00 Miscellaneous Information 1 ea NOTE XX ; Start 07/12/16 at 04:30 Glucose (Glutose) 15 gm Q15M PRN PO DECREASED GLUCOSE; Start 07/12/16 at 04:30 Glucose (Glutose) 22.5 gm Q15M PRN PO DECREASED GLUCOSE; Start 07/12/16 at 04: 30 Dextrose (D50w Syringe) 25 ml Q15M PRN IV DECREASED GLUCOSE; Start 07/12/16 at 04:30 Dextrose (D50w Syringe) 50 ml Q15M PRN IV DECREASED GLUCOSE; Start 07/12/16 at 04:30 Glucagon (Glucagen) 1 mg Q15M PRN IM DECREASED GLUCOSE; Start 07/12/16 at 04:30 Glucose (Glutose) 15 gm Q15M PRN BUCCAL DECREASED GLUCOSE; Start 07/12/16 at 04 :30 Aspirin (Aspirin) 81 mg DAILY PO Last administered on 07/15/16 08:25; Admin Dose 81 MG; Start 07/13/16 at 09:00 Atorvastatin Calcium (Lipitor) 40 mg DAILY@21 PO Last administered on 20:53; Admin Dose 40 MG; Start 07/12/16 at 21:00 Hydralazine HCl (Apresoline) 10 mg Q6H PRN IV ELEVATED BLOOD PRESSURE Last administered on 07/13/16 10:17; Admin Dose 10 MG; Start 07/13/16 at 09:00 Lisinopril (Zestril) 5 mg DAILY PO Last administered on 07/15/16 08:24; Admin Dose 5 MG; Start 07/13/16 at 13:00 Carvedilol (Coreg) 3.125 mg BID PO Last administered on 07/14/16 14:36; Admin Dose 3.125 MG; Start 07/14/16 at 13:00 Acetaminophen (Tylenol Tab) 650 mg ONCE PO ; Start 07/15/16 at 13:30; Stop 07/15 at 18:00 Diphenhydramine HCl (Benadryl) 25 mg ONCE PO ; Start 07/15/16 at 13:30; Stop at 19:00 Dayron Davenport DO Jul 15, 2016 15:21
--- NOTE | 2016-07-15 16:35 | CONS ---
Date/Time of Note Date/Time of Note DATE: 07/15/16 TIME: 16:32 Consult Date/Type/Reason Admit Date/Time Jul 12, 2016 at 04:20 Type of Consultation: Pulm Subjective Worsening renal fxn noted. Dyspnea unchanged. Objective Vital Signs Date Time Temp Pulse Resp B/P Pulse Ox O2 Delivery O2 Flow Rate FiO2 07/15/16 16:09 56 07/15/16 15:13 98.5 18 108/56 100 07/15/16 11:03 Nasal Cannula 3.0 07/13/16 10:48 32 Intake and Output 07/14/16 07/14/16 07/15/16 15:00 23:00 07:00 Intake Total 200 ml Output Total 3200 ml 600 ml Balance -3200 ml -400 ml Exam CARDIAC EXAM: S1, S2. 2/6 DAVID CHEST: Bibasilar rales ABDOMEN: Soft, nontender. No guarding or rebound. EXTREMITIES: No cyanosis, clubbing, + edema Results/Medications Result Diagram: 07/15/16 1051 07/15/16 1051 Results 24 hrs Laboratory Tests Test 07/14/16 17:48 07/14/16 20:52 07/15/16 07:43 07/15/16 10:51 Bedside Glucose 136 155 105 White Blood Count 10.3 # Red Blood Count 2.76 L Hemoglobin 7.4 L Hematocrit 24.3 L Mean Corpuscular Volume 88.0 Mean Corpuscular Hemoglobin 26.8 L Mean Corpuscular Hemoglobin Concent 30.5 L Red Cell Distribution Width 15.4 H Platelet Count 144 Mean Platelet Volume 12.2 H Neutrophils % 77.6 H Lymphocytes % 10.5 L Monocytes % 10.0 Eosinophils % 1.2 Basophils % 0.3 Nucleated Red Blood Cells % 0.0 Neutrophils # 8.0 H Lymphocytes # 1.1 Monocytes # 1.0 H Eosinophils # 0.1 Basophils # 0.0 Nucleated Red Blood Cells # 0.0 Sodium Level 134 L Potassium Level 4.7 Chloride Level 93 L Carbon Dioxide Level 27 Anion Gap 19 #H Blood Urea Nitrogen 67 H Creatinine 3.39 #H Glucose Level 159 Calcium Level 8.8 Iron Level 22 L Total Iron Binding Capacity 195 L Percent Iron Saturation 11 L Ferritin 505.0 H Test 07/15/16 11:50 Bedside Glucose 151 Medications Current Medications Metoclopramide HCl (Reglan) 10 mg Q6H PRN IV NAUSEA AND/OR VOMITING; Start at 04:30 Nitroglycerin (Nitroglycerin (Sl Tab) 0.4 Mg) 1 tab Q5M PRN SL CHEST PAIN; Start 07/12/16 at 04:30 Acetaminophen (Tylenol Liquid) 650 mg Q6H PRN PO PAIN LEVEL 1-3 OR FEVER; Start 07/12/16 at 04:30 Acetaminophen/ Hydrocodone Bitart ([place] (5/325)) 1 tab Q6H PRN PO PAIN LEVEL 4 -6; Start 07/12/16 at 04:30 Acetaminophen/ Hydrocodone Bitart ([place] (5/325)) 2 tab Q6H PRN PO PAIN LEVEL 7 -10; Start 07/12/16 at 04:30 Lorazepam (Ativan) 0.5 mg Q4 PRN IV ANXIETY; Start 07/12/16 at 04:30 Famotidine (Pepcid) 20 mg Q12 PO Last administered on 07/15/16 08:24; Admin Dose 20 MG; Start 07/12/16 at 09:00 Clopidogrel Bisulfate (plaVIX) 75 mg DAILY PO Last administered on 07/15/16 08 :24; Admin Dose 75 MG; Start 07/12/16 at 09:00 Miscellaneous Information 1 ea NOTE XX ; Start 07/12/16 at 04:30 Glucose (Glutose) 15 gm Q15M PRN PO DECREASED GLUCOSE; Start 07/12/16 at 04:30 Glucose (Glutose) 22.5 gm Q15M PRN PO DECREASED GLUCOSE; Start 07/12/16 at 04: 30 Dextrose (D50w Syringe) 25 ml Q15M PRN IV DECREASED GLUCOSE; Start 07/12/16 at 04:30 Dextrose (D50w Syringe) 50 ml Q15M PRN IV DECREASED GLUCOSE; Start 07/12/16 at 04:30 Glucagon (Glucagen) 1 mg Q15M PRN IM DECREASED GLUCOSE; Start 07/12/16 at 04:30 Glucose (Glutose) 15 gm Q15M PRN BUCCAL DECREASED GLUCOSE; Start 07/12/16 at 04 :30 Aspirin (Aspirin) 81 mg DAILY PO Last administered on 07/15/16 08:25; Admin Dose 81 MG; Start 07/13/16 at 09:00 Atorvastatin Calcium (Lipitor) 40 mg DAILY@21 PO Last administered on 20:53; Admin Dose 40 MG; Start 07/12/16 at 21:00 Hydralazine HCl (Apresoline) 10 mg Q6H PRN IV ELEVATED BLOOD PRESSURE Last administered on 07/13/16 10:17; Admin Dose 10 MG; Start 07/13/16 at 09:00 Carvedilol (Coreg) 3.125 mg BID PO Last administered on 07/14/16 14:36; Admin Dose 3.125 MG; Start 07/14/16 at 13:00 Acetaminophen (Tylenol Tab) 650 mg ONCE PO Last administered on 07/15/16 15:38 ; Admin Dose 650 MG; Start 07/15/16 at 13:30; Stop 07/15/16 at 18:00 Diphenhydramine HCl (Benadryl) 25 mg ONCE PO Last administered on 07/15/16 15: 37; Admin Dose 25 MG; Start 07/15/16 at 13:30; Stop 07/15/16 at 19:00 Assessment/Plan Additional Assessment/Plan IMP 1. Acute congestive cardiac failure, systolic and diastolic dysfunction 2. s/p Acute hypoxemic respiratory failure 3. JUNIOR--? LEONIE , overdiuresis RECS: 1. Hold LEONIE and diuresis 2. Gentle fluid challenge 3. Urine lytes; follow renal function; renal U/S GEORGINA AQUINO MD Jul 15, 2016 16:35
[2016-07-15] MEDS ORDERED: ALBUMIN HUMAN 25% 50 ML IV ONE ×2 (17:00→21:00)
--- NOTE | 2016-07-15 17:51 | CONS ---
DATE OF ADMISSION: 07/12/2016 DATE OF CONSULTATION: 07/15/2016 TYPE OF CONSULTATION: Orthopedic surgical consultation. HISTORY OF PRESENT ILLNESS: The patient is a 61-year-old right-handed male who was admitted on 06/24 when he was brought in because of the severe respiratory distress. Initial evaluation reveal ed that he is having congestive heart failure with the pulmonary edema and with proper medical treat ment. His medical condition has improved. Orthopedic surgery was consulted because of the presence of fracture involving the proximal humerus at the right elbow, which was detected in the chest x-ray. On inquiring, the patient revealed the following history: He had sustained a fracture involving his right shoulder around 06/01/2016, which is about a 43 days ago. At that time, he was seen in the [facility] and was scheduled for some type of surgery in 2 weeks; however, later on he was told that he would be transferred to [facility] and he is waiting. PHYSICAL EXAMINATION: My examination did not show any signs of acute trauma such as ecchymosis, hem atoma or unusual swelling around the right shoulder. Tenderness around the shoulder is minimal and t he gentle passive range of motion was not provoking too much pain. There was no residual ecchymosis in the dependent position of the right upper extremity. There was no evidence of acute neurovascul ar compromise involving the right upper extremity. Available x-rays of the right shoulder was reviewed and it revealed a fracture involving the surgica l neck of the right humerus. There were signs of callus formation suggesting that his fracture is h ealing even though it is not in ideal alignment. DIAGNOSTIC IMPRESSION: Fracture involving the neck of the humerus at the right shoulder, 43 days ol d, healing in less than ideal, but probably in acceptable alignment. RECOMMENDATIONS FOR MANAGEMENT: 1. Continue the sling immobilization for now. 2. Further followup at [facility]. Dictated By: ORALIA MARY/CASSIE Conf#: [id number] DID#: [id number]
[2016-07-15] MEDS: ATORVASTATIN 40 MG TAB PO SCH (20:54)
[2016-07-16] VITALS (11 sets, daily range): BP systolic 106–117; BP diastolic 55–58; PULSE 50–96; RESP 18–20
--- NOTE | 2016-07-16 06:23 | RADRPT ---
PROCEDURE: US Renal CLINICAL INDICATION: Acute bony injury TECHNIQUE: Multiple sonographic images of the kidneys and bladder were obtained. Evaluation of th e kidneys and bladder was performed as well with jean-baptiste scale and color and Doppler evaluation using a curved array transducer. The images were reviewed on a high-resolution PACS workstation. COMPARISON: No prior studies are available for comparison. FINDINGS: The right kidney measures 12.2 cm in length. There is a 1.5 cm cyst within the mid pole of the right kidney. The renal parenchyma demonstrates normal echogenicity. There is no calculus or obstructive uropathy. No perinephric fluid collection is seen. The left kidney is surgically absent. The bladd er is under distended, but otherwise unremarkable. IMPRESSION: 1. 1.5 cm cyst within the mid pole of the right kidney. 2. Status post left nephrectomy. RPTAT: HH .Salma Strong MD, Date Time Electronically viewed and signed by .Salma Strong MD, on 07/16/2016 06:23 .G/
[2016-07-16] MEDS: INSULIN ASPART [NOVOLOG] 3 ML PEN SC SCH ×4 (07:55→21:00)
[2016-07-16] MEDS: CLOPIDOGREL 75 MG TAB PO SCH (08:34)
[2016-07-16] MEDS: ASPIRIN 81 MG TAB PO SCH (08:34)
[2016-07-16] MEDS: FAMOTIDINE 20 MG TAB PO SCH ×2 (08:34→22:03)
--- NOTE | 2016-07-16 09:16 | PN ---
DATE: 07/13/2016 SUBJECTIVE: The patient has less shortness of breath symptoms, seen by pulmonary and cardiology tea ms. OBJECTIVE VITAL SIGNS: Stable. The patient saturating at 96 to 98% on 3 liters nasal cannula. GENERAL: Patient sitting in chair drinking coffee, no acute distress. HEENT: Pupils equal, round, react to light. Extraocular muscles intact. NECK: Supple, no thyromegaly. LUNGS: Distant breath sounds bilaterally. CARDIOVASCULAR: S1, S2 heard. No rubs or gallops. ABDOMEN: Soft, nontender, nondistended. Normal bowel sounds. No rebound or guarding. MUSCULOSKELETAL: Trace pitting edema bilateral lower extremities. NEUROLOGIC: No focal deficits. LABORATORY DATA: CBC is normal. Sodium 142, potassium 4.5, chloride 104, CO2 27, BUN 34, creatinin e 1.3, glucose 94. Latest troponin is 0.111, echocardiogram performed that shows ejection fraction of 45%. There is stage II diastolic dysfunction present. Normal left ventricular cavity size, mild enlargement of left ventricle, mild left ventricular systolic dysfunction. There is moderate enlar gement of the left atrium, mild to moderate mitral valve regurgitation. No significant aortic steno sis or insufficiency. ASSESSMENT AND PLAN: A 61-year-old male with past medical history of hypertension, high cholesterol , coronary artery disease who presents with acute decompensated congestive heart failure, renal insu fficiency and elevated cardiac enzymes. 1. Shortness of breath secondary to decompensated congestive heart failure, slowly improving. Cont inue current medications for now, monitor ins and outs. Follow cardiology and pulmonary recommendat ions, gentle diuresis for now. DuoNebs p.r.n. for shortness of breath symptoms as well. 2. Renal insufficiency, slowly improving. Continue to monitor BUN and creatinine levels for now and ins and outs. If worsens, consider renal consult. 3. History of coronary artery disease with PCI in the past. Continue aspirin, Plavix and Lipitor f or now. Follow up cardiology recommendations. 4. 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 Continue to monitor for now. 5. Elevated cardiac enzymes, continuing to trend down, likely secondary to congestive heart failure and renal dysfunction. Again, continue to monitor for now. Follow up cardiology recommendations. 6. History of diabetes. Continue sliding scale insulin. A1c is 5.7. 7. Gastrointestinal prophylaxis. Pepcid. 8. Venous thrombosis prophylaxis, SCDs, is also on aspirin and Plavix. Dictated By: DEREK DIAL Conf#: [id number] DID#: [id number]
--- NOTE | 2016-07-16 09:26 | RADRPT ---
PROCEDURE: XR Chest. CLINICAL INDICATION: chf TECHNIQUE: Single frontal view of the chest was obtained. COMPARISON: Chest x-ray from 07/14/2016 FINDINGS: There are stable low lung volumes and mild cardiomegaly with prominence of interstitial markings, li allyssa due to a combination of congestive changes and vascular crowding. These appear to have mildly decreased since the prior chest x-ray from 07/14/2016. The aortic arch is calcified. There are no definite focal infiltrates. There is no significant pleural effusion or pneumothorax. IMPRESSION: Mildly decreased congestive changes. Otherwise, no significant interval change. RPTAT: EE Physician Simba Date Time Electronically viewed and signed by Physician Simba on 07/16/2016 09:26 RA/
[2016-07-16 09:40] LABS: ADD SCAN DIFF NO
[2016-07-16 09:42] LABS: BASOPHILS % 0.3 % (0.0-2.0); EOSINOPHILS # 0.2 10^3/ul (0.0-0.5); EOSINOPHILS % 2.5 % (0.0-7.0); HEMATOCRIT 26.2 % (42.0-52.0); HEMOGLOBIN 8.2 g/dl (14.0-18.0); LYMPHOCYTES # 0.8 10^3/ul (0.8-2.9); LYMPHOCYTES % 8.9 % (15.0-51.0); MEAN CORPUSCULAR HEMOGLOBIN 27.3 pg (29.0-33.0); MEAN CORPUSCULAR HGB CONC 31.3 g/dl (32.0-37.0); MEAN CORPUSCULAR VOLUME 87.3 fl (82.0-101.0); MEAN PLATELET VOLUME 12.1 fl (7.4-10.4); MONOCYTE # 0.9 10^3/ul (0.3-0.9); MONOCYTES % 9.4 % (0.0-11.0); NEUTROPHIL # 7.3 10^3/ul (1.6-7.5); NEUTROPHILS % 78.4 % (39.0-77.0); PLATELET COUNT 149 10^3/UL (140-415); WHITE BLOOD COUNT 9.3 10^3/ul (4.8-10.8)
[2016-07-16 09:58] LABS: POTASSIUM 4.7 mmol/L (3.5-5.1)
[2016-07-16 10:00] LABS: CREATININE 2.43 mg/dl (0.61-1.24)
[2016-07-16 10:01] LABS: CALCIUM 8.9 mg/dl (8.4-10.2)
--- NOTE | 2016-07-16 12:07 | PN ---
DATE: 07/16/2016 TIME OF EVALUATION: 11 a.m. SUBJECTIVE DATA: Respiratory distress improved. Complains of right upper extremity pain. OBJECTIVE DATA: VITAL SIGNS: Temperature 99.0, pulse rate 60, respiratory rate 18, blood pressure 106/56, oxygen saturation 93% on low flow O2. GENERAL: This is a morbidly obese male lying in bed in no apparent distress. HEENT: Head normocephalic and atraumatic. Anicteric sclerae, conjunctivae clear. Strabismus of the right eye. ENT: Nasal septum is midline. Oral mucosa is dry. NECK: Supple. No JVD noticed. RESPIRATORY: Bilaterally diminished breath sounds. No adventitious breath sounds heard. No use of accessory muscles of respiration. CARDIAC: Regular rate and rhythm. Soft systolic murmur. ABDOMEN: Obese. Soft. Nondistended. Bowel sounds positive in all 4 quadrants. GENITOURINARY: Deferred. EXTREMITIES: No cyanosis, no clubbing. Peripheral pulses are diminished bilaterally. NEUROLOGIC: The patient is awake, alert and oriented. Cranial nerves are grossly intact. LABORATORY AND DIAGNOSTIC DATA: WBC 9.3, hemoglobin 8.2, hematocrit 26.2, platelet count 149. Sodium 135, potassium 4.0, chloride 95, carbon dioxide 26, anion gap 19, BUN 77, glucose 139, calcium 8.9. ASSESSMENT AND PLAN: 1. Acute hypoxic and hypercapnic respiratory failure secondary to congestive heart failure exacerbation. Status post BiPAP therapy. Currently on low flow oxygen. Continue inhaled bronchodilators. 2. Congestive heart failure exacerbation. Acute on chronic. Systolic and diastolic dysfunction. Continue careful diuresis because of worsening renal function. Continue supplemental oxygen. 3. Cardiomyopathy with ejection fraction of 45%. Continue beta blockers, LEONIE inhibitors on hold because of worsening of renal function. 4. [id number] myocardial infarction. Possibly a type 2 event in the setting of worsening renal function. 5. Essential hypertension. Continue antihypertensives. 6. Anemia with underlying iron deficiency. Will start the patient on iron supplements. 7. Acute on chronic kidney disease. Worsening renal function. Hold LEONIE inhibitors and diuretics. Nephrology to evaluate the patient. The patient is status post left nephrectomy. 8. Displaced comminuted proximal right humeral head fracture. Seen and evaluated by orthopedic surgery. Orthopedic surgery recommending continuous immobilization and further follow up at [facility]. Status post physical therapy evaluation. 9. History of coronary artery disease status post percutaneous coronary intervention in the past. Continue dual antiplatelet therapy. Continue statins. 10. Type 2 diabetes mellitus. Hemoglobin A1c 5.7. Blood sugars well controlled. 11. Fluid, electrolytes, and nutrition. Carbohydrate controlled low cholesterol diet. 12. Deep venous thrombosis prophylaxis. No chemical DVT prophylaxis because of anemia that required blood transfusion. 13. Gastrointestinal prophylaxis. Histamine 2 receptor blockers. PLAN: Continue inpatient monitoring. We will obtain a nephrology consult. The case was discussed with Dr. Solano. BEATRICE SOLANO MD, AM/CASSIE Conf#: [id number] DID#: [id number] MTDD
[2016-07-16] MEDS: FERROUS SULFATE (EC) 325 MG TAB PO SCH ×2 (12:52→22:03)
--- NOTE | 2016-07-16 13:24 | CONS ---
Date/Time of Note Date/Time of Note DATE: 07/16/16 TIME: 13:22 Assessment/Plan Assessment/Plan Additional Assessment/Plan X-ray was reviewed from today which is showing marked improvement in pulmonary edema. Assessment recommendations; 1. Patient admitted for CHF exacerbation with significant clinical and radiological improvement. 2. Renal insufficiency. Serum creatinine gradually improving. 3. Obesity. 4. Hypertension. 5. Likely underlying sleep apnea. Continue current supportive care. Patient will need to have a sleep study on outpatient basis. Consultation Date/Type/Reason Admit Date/Time Jul 12, 2016 at 04:20 Initial Consult Date Type of Consultation: Pulm 24 HR Interval Summary Free Text/Dictation Patient condition is stable. According to him shortness of breath is markedly improved. Denies any wheezing, chest pain, sputum production. General exam; elderly male appears quite overweight currently in no distress awake and alert. Exam/Review of Systems Vital Signs Vitals Vital Signs Date Time Temp Pulse Resp B/P Pulse Ox O2 Delivery O2 Flow Rate FiO2 07/16/16 12:00 56 07/16/16 11:56 98.4 18 109/55 98 07/16/16 08:13 3.0 07/16/16 08:00 Nasal Cannula 07/13/16 10:48 32 Intake and Output 07/15/16 07/15/16 07/16/16 15:00 23:00 07:00 Intake Total 925 ml 240 ml Output Total 600 ml 580 ml Balance 325 ml -340 ml Exam HEENT examination; supple neck, positive JVD. No lymphadenopathy. Midline trachea. Pharynx is clear. Patient bilateral intraocular lens implants. No neck masses. No neck bruits. No thyromegaly. Chest examination; diminished but clear breath sound. S1-S2 audible, no murmurs. Regular rhythm. Abdomen examination; soft, protuberant. Nontender. Bowel sounds audible. Extremity examination; no peripheral edema. Pulses 1+ bilaterally. GIN OPERATOR examination; no focal deficit. Results Result Diagram: 07/16/1690507/16/16905 Results 24 hrs Laboratory Tests Test 07/15/16 20:52 07/16/16 08:17 07/16/16 09:06 07/16/16 12:13 Bedside Glucose 127 103 133 White Blood Count 9.3 Red Blood Count 3.00 L Hemoglobin 8.2 L Hematocrit 26.2 L Mean Corpuscular Volume 87.3 Mean Corpuscular Hemoglobin 27.3 L Mean Corpuscular Hemoglobin Concent 31.3 L Red Cell Distribution Width 15.0 H Platelet Count 149 Mean Platelet Volume 12.1 H Neutrophils % 78.4 H Lymphocytes % 8.9 L Monocytes % 9.4 Eosinophils % 2.5 Basophils % 0.3 Nucleated Red Blood Cells % 0.0 Neutrophils # 7.3 Lymphocytes # 0.8 Monocytes # 0.9 Eosinophils # 0.2 Basophils # 0.0 Nucleated Red Blood Cells # 0.0 Sodium Level 135 Potassium Level 4.7 Chloride Level 95 L Carbon Dioxide Level 26 Anion Gap 19 H Blood Urea Nitrogen 77 H Creatinine 2.43 H Glucose Level 139 Calcium Level 8.9 Medications Medications Current Medications Metoclopramide HCl (Reglan) 10 mg Q6H PRN IV NAUSEA AND/OR VOMITING; Start at 04:30 Nitroglycerin (Nitroglycerin (Sl Tab) 0.4 Mg) 1 tab Q5M PRN SL CHEST PAIN; Start 07/12/16 at 04:30 Acetaminophen (Tylenol Liquid) 650 mg Q6H PRN PO PAIN LEVEL 1-3 OR FEVER; Start 07/12/16 at 04:30 Acetaminophen/ Hydrocodone Bitart ([place] (5/325)) 1 tab Q6H PRN PO PAIN LEVEL 4 -6; Start 07/12/16 at 04:30 Acetaminophen/ Hydrocodone Bitart ([place] (5/325)) 2 tab Q6H PRN PO PAIN LEVEL 7 -10; Start 07/12/16 at 04:30 Lorazepam (Ativan) 0.5 mg Q4 PRN IV ANXIETY; Start 07/12/16 at 04:30 Famotidine (Pepcid) 20 mg Q12 PO Last administered on 07/16/16 08:34; Admin Dose 20 MG; Start 07/12/16 at 09:00 Clopidogrel Bisulfate (plaVIX) 75 mg DAILY PO Last administered on 07/16/16 08 :34; Admin Dose 75 MG; Start 07/12/16 at 09:00 Miscellaneous Information 1 ea NOTE XX ; Start 07/12/16 at 04:30 Glucose (Glutose) 15 gm Q15M PRN PO DECREASED GLUCOSE; Start 07/12/16 at 04:30 Glucose (Glutose) 22.5 gm Q15M PRN PO DECREASED GLUCOSE; Start 07/12/16 at 04: 30 Dextrose (D50w Syringe) 25 ml Q15M PRN IV DECREASED GLUCOSE; Start 07/12/16 at 04:30 Dextrose (D50w Syringe) 50 ml Q15M PRN IV DECREASED GLUCOSE; Start 07/12/16 at 04:30 Glucagon (Glucagen) 1 mg Q15M PRN IM DECREASED GLUCOSE; Start 07/12/16 at 04:30 Glucose (Glutose) 15 gm Q15M PRN BUCCAL DECREASED GLUCOSE; Start 07/12/16 at 04 :30 Aspirin (Aspirin) 81 mg DAILY PO Last administered on 07/16/16 08:34; Admin Dose 81 MG; Start 07/13/16 at 09:00 Atorvastatin Calcium (Lipitor) 40 mg DAILY@21 PO Last administered on 20:54; Admin Dose 40 MG; Start 07/12/16 at 21:00 Hydralazine HCl (Apresoline) 10 mg Q6H PRN IV ELEVATED BLOOD PRESSURE Last administered on 07/13/16 10:17; Admin Dose 10 MG; Start 07/13/16 at 09:00 Carvedilol (Coreg) 3.125 mg BID PO Last administered on 07/14/16 14:36; Admin Dose 3.125 MG; Start 07/14/16 at 13:00 Ferrous Sulfate (Ferrous Sulfate (Ec)) 325 mg TID PO Last administered on 12:52; Admin Dose 325 MG; Start 07/16/16 at 13:00 MARSHA ALCANTARA Jul 16, 2016 13:24
--- NOTE | 2016-07-16 16:07 | CONS ---
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 Continue antiplatelet therapy, statin therapy, beta- blockers heart rate and blood pressure permits. Restart maintenance diuretics when okay by our nephrology colleagues. Consultation Date/Type/Reason Admit Date/Time Jul 12, 2016 at 04:20 Type of Consultation: cv 24 HR Interval Summary Free Text/Dictation Shortness of breath continues to improve, denies chest pain, dizziness Exam/Review of Systems Vital Signs Vitals Vital Signs Date Time Temp Pulse Resp B/P Pulse Ox O2 Delivery O2 Flow Rate FiO2 07/16/16 15:37 98.3 55 18 113/57 96 07/16/16 08:13 3.0 07/16/16 08:00 Nasal Cannula 07/13/16 10:48 32 Intake and Output 07/15/16 07/15/16 07/16/16 15:00 23:00 07:00 Intake Total 925 ml 240 ml Output Total 600 ml 580 ml Balance 325 ml -340 ml Exam Sitting in chair, no apparent distress Constitutional: alert, oriented Head: normocephalic Respiratory: other (Coarse breath sounds bilaterally, no wheezing) Cardiovascular: other (S1-S2 heard), regular rate and rhythm Gastrointestinal: bowel sounds, non-tender, soft Extremities: edema Results Result Diagram: 07/16/16 0906 07/16/16 0906 Results 24 hrs Laboratory Tests Test 07/15/16 20:52 07/16/16 08:17 07/16/16 09:06 07/16/16 12:13 Bedside Glucose 127 103 133 White Blood Count 9.3 Red Blood Count 3.00 L Hemoglobin 8.2 L Hematocrit 26.2 L Mean Corpuscular Volume 87.3 Mean Corpuscular Hemoglobin 27.3 L Mean Corpuscular Hemoglobin Concent 31.3 L Red Cell Distribution Width 15.0 H Platelet Count 149 Mean Platelet Volume 12.1 H Neutrophils % 78.4 H Lymphocytes % 8.9 L Monocytes % 9.4 Eosinophils % 2.5 Basophils % 0.3 Nucleated Red Blood Cells % 0.0 Neutrophils # 7.3 Lymphocytes # 0.8 Monocytes # 0.9 Eosinophils # 0.2 Basophils # 0.0 Nucleated Red Blood Cells # 0.0 Sodium Level 135 Potassium Level 4.7 Chloride Level 95 L Carbon Dioxide Level 26 Anion Gap 19 H Blood Urea Nitrogen 77 H Creatinine 2.43 H Glucose Level 139 Calcium Level 8.9 Medications Medications Current Medications Metoclopramide HCl (Reglan) 10 mg Q6H PRN IV NAUSEA AND/OR VOMITING; Start at 04:30 Nitroglycerin (Nitroglycerin (Sl Tab) 0.4 Mg) 1 tab Q5M PRN SL CHEST PAIN; Start 07/12/16 at 04:30 Acetaminophen (Tylenol Liquid) 650 mg Q6H PRN PO PAIN LEVEL 1-3 OR FEVER; Start 07/12/16 at 04:30 Acetaminophen/ Hydrocodone Bitart ([place] (5/325)) 1 tab Q6H PRN PO PAIN LEVEL 4 -6; Start 07/12/16 at 04:30 Acetaminophen/ Hydrocodone Bitart ([place] (5/325)) 2 tab Q6H PRN PO PAIN LEVEL 7 -10; Start 07/12/16 at 04:30 Lorazepam (Ativan) 0.5 mg Q4 PRN IV ANXIETY; Start 07/12/16 at 04:30 Famotidine (Pepcid) 20 mg Q12 PO Last administered on 07/16/16 08:34; Admin Dose 20 MG; Start 07/12/16 at 09:00 Clopidogrel Bisulfate (plaVIX) 75 mg DAILY PO Last administered on 07/16/16 08 :34; Admin Dose 75 MG; Start 07/12/16 at 09:00 Miscellaneous Information 1 ea NOTE XX ; Start 07/12/16 at 04:30 Glucose (Glutose) 15 gm Q15M PRN PO DECREASED GLUCOSE; Start 07/12/16 at 04:30 Glucose (Glutose) 22.5 gm Q15M PRN PO DECREASED GLUCOSE; Start 07/12/16 at 04: 30 Dextrose (D50w Syringe) 25 ml Q15M PRN IV DECREASED GLUCOSE; Start 07/12/16 at 04:30 Dextrose (D50w Syringe) 50 ml Q15M PRN IV DECREASED GLUCOSE; Start 07/12/16 at 04:30 Glucagon (Glucagen) 1 mg Q15M PRN IM DECREASED GLUCOSE; Start 07/12/16 at 04:30 Glucose (Glutose) 15 gm Q15M PRN BUCCAL DECREASED GLUCOSE; Start 07/12/16 at 04 :30 Aspirin (Aspirin) 81 mg DAILY PO Last administered on 07/16/16 08:34; Admin Dose 81 MG; Start 07/13/16 at 09:00 Atorvastatin Calcium (Lipitor) 40 mg DAILY@21 PO Last administered on 20:54; Admin Dose 40 MG; Start 07/12/16 at 21:00 Hydralazine HCl (Apresoline) 10 mg Q6H PRN IV ELEVATED BLOOD PRESSURE Last administered on 07/13/16 10:17; Admin Dose 10 MG; Start 07/13/16 at 09:00 Carvedilol (Coreg) 3.125 mg BID PO Last administered on 07/14/16 14:36; Admin Dose 3.125 MG; Start 07/14/16 at 13:00 Ferrous Sulfate (Ferrous Sulfate (Ec)) 325 mg TID PO Last administered on 12:52; Admin Dose 325 MG; Start 07/16/16 at 13:00 Dayron Davenport DO Jul 16, 2016 16:07
[2016-07-16 16:17] LABS: ADD UMIC YES; URINE BILIRUBIN (Dip) NEGATIVE (NEGATIVE); URINE BLOOD (Dip) NEGATIVE (NEGATIVE); URINE COLOR LT. YELLOW (YELLOW); URINE GLUCOSE (Dip) NEGATIVE (NEGATIVE); URINE KETONES (Dip) NEGATIVE (NEGATIVE); URINE LEUKOCYTE ESTERASE (Dip) TRACE (NEGATIVE); URINE NITRITE (Dip) NEGATIVE (NEGATIVE); URINE TOTAL PROTEIN (Dip) NEGATIVE (NEGATIVE); URINE UROBILINOGEN (Dip) 0.2 E.U./dL (0.1-1.0)
[2016-07-16 16:29] LABS: BACTERIA,URINE FEW; TRANSITIONAL EPI CELLS,URINE FEW; URINE RBCS NONE SEEN /HPF (0)
--- NOTE | 2016-07-16 19:39 | CONS ---
DATE OF ADMISSION: 07/12/2016 DATE OF CONSULTATION: TYPE OF CONSULTATION: Nephrology. REASON FOR CONSULTATION: Acute kidney injury. PHYSICIAN REQUESTING CONSULTATION: Dr. Mackay HISTORY OF PRESENT ILLNESS: This is a 61-year-old male with a past medical history of COPD, CHF, hy pertension, diabetes who presented to [facility] Emergency Room from home with respiratory distress. The patient's symptoms began approximately 2 weeks ago when he started having lower extre mity edema, shortness of breath. These symptoms progressively worsened until he was brought into em ergency room. Upon arrival to the ER, the patient was noted to be in acute CHF exacerbation. He wa s placed on CPAP. The patient was started on diuretic therapy and admitted to telemetry for evaluat ion. While on telemetry, the patient was seen by senior partner, Dr. Davenport. The patient is clinical ly improved with diuretic regimen, was weaned off BiPAP. The patient is currently without any acute distress. The patient was also seen by fitting room inspector, Dr. Griggs. In terms of the patient's renal history, the patient has a history of nephrectomy which occurred sec ondary to a tumor several years ago. The patient's baseline renal function is unknown. The patient denies any recent episodes of hemoptysis, hematemesis, hematochezia or hematuria. PAST MEDICAL HISTORY: As stated above. History of CHF, hypertension, COPD, diabetes. PAST SURGICAL HISTORY: Nephrectomy. ALLERGIES: NO KNOWN DRUG ALLERGIES. FAMILY HISTORY: Noncontributory. SOCIAL HISTORY: He does not drink, smoke, do drugs. MEDICATIONS: The patient's medications have been reviewed. REVIEW OF SYSTEMS: A 14-point review of systems was conducted. Pertinent positives stated in HPI, otherwise negative. PHYSICAL EXAMINATION: VITAL SIGNS: Blood pressure is 113/57, respiration 18, pulse 55, temperature ____. HEENT: Head is normocephalic. Pupils are reactive to light. NECK: Supple. HEART: Regular rate. LUNGS: Diminished breath sounds at base, mild crackles. ABDOMEN: Soft, nontender to palpation. No rebound, guarding. EXTREMITIES: Negative for clubbing, cyanosis. Trace edema. DERMATOLOGIC: No rashes. MUSCULOSKELETAL: No joint effusion. NEUROLOGIC: No focal deficits. LABORATORY DATA: Sodium 135, potassium 4.7, chloride 95, BUN 77, creatinine 2.43. White count 9.3, hemoglobin ____, hematocrit of 26.2, platelet count is 149. IMAGING STUDIES: Chest x-ray shows mild decreased changes in congestion, and renal ultrasound shows status post left nephrectomy, 1.5 cm cyst in the mid pole. ASSESSMENT AND PLAN: This is a 61-year-old male who presents with: 1. Nonoliguric acute kidney injury on top of chronic kidney disease with a history of nephrectomy. Etiology of current acute kidney injury is secondary to hemodynamics and diuretic therapy, LEONIE inhi bitor effect. The patient's renal function has improved after de-escalating Lasix and holding LEONIE i nhibitor. The patient's renal ultrasound shows no evidence of obstruction. Plan at this point woul d be to check a UA with microanalysis, check urine electrolytes. Would otherwise continue current t reatment plan. Continue to hold LEONIE inhibitor. Would continue to hold diuretic therapy for another 24 to 48 hours in order to enable fluid to mobilize. Otherwise, continue supportive care, renally dose medications, avoid nephrotoxins. 2. 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 The patient is currently in acute kidney injury as stated above. Plan at this po int is to check UA with microanalysis. Will quantify the patient's proteinuria by checking a protei n/creatinine ratio and microalbumin/creatinine ratio. Would otherwise continue disease factor modif ication, good glycemic and blood pressure control. 3. Anemia of chronic disease. Will monitor hemoglobin and hematocrit levels. 4. Mineral bone disorder. Monitor calcium, phosphorus levels. 5. Acute congestive heart failure exacerbation, systolic, diastolic. The patient has clinically im proved with diuretic therapy as he is nearing euvolemic status. Will continue current medical manag ement, diuretic therapy and LEONIE inhibitor on hold due to worsening renal function. Will follow up w ith our cardiology colleagues for further recommendations. 6. History of coronary disease, status post percutaneous coronary intervention. Continue medical m anagement. 7. Hypertension. Blood pressure well controlled. Continue current blood pressure regimen. 8. Diabetes. Continue Accu-Cheks, insulin sliding scale. 9. History of renal tumor, status post nephrectomy. 10. History of chronic obstructive pulmonary disease. Continue current medical management. Contin ue nebulizers. 11. Acute hypoxemic respiratory failure secondary to congestive heart failure exacerbation. The shanice maryjane clinically improved, currently on low-flow oxygen. Will continue current medical management. 12. Displaced proximal right humeral fracture. The patient was evaluated by Orthopedic Surgery. W ill continue immobilization. Thank you for this very interesting consultation. It will be a pleasure to follow patient with you throughout the hospital course. Dictated By: NANCY FERNANDEZ/CASSIE Conf#: [id number] DID#: [id number]
[2016-07-16] MEDS: ATORVASTATIN 40 MG TAB PO SCH (22:03)
[2016-07-17] VITALS (13 sets, daily range): BP systolic 105–129; BP diastolic 53–63; PULSE 45–68; RESP 18–20
[2016-07-17] MEDS: INSULIN ASPART [NOVOLOG] 3 ML PEN SC SCH ×4 (07:55→21:00)
[2016-07-17 08:54] LABS: PHOSPHORUS 4.5 mg/dl (2.5-4.9)
[2016-07-17] MEDS: CLOPIDOGREL 75 MG TAB PO SCH (09:02)
[2016-07-17] MEDS: FERROUS SULFATE (EC) 325 MG TAB PO SCH ×3 (09:03→21:01)
[2016-07-17] MEDS: ASPIRIN 81 MG TAB PO SCH (09:03)
[2016-07-17] MEDS: FAMOTIDINE 20 MG TAB PO SCH ×2 (09:03→21:01)
[2016-07-17 10:42] LABS: ADD SCAN DIFF NO
--- NOTE | 2016-07-17 10:51 | PN ---
DATE: 07/17/2016 SUBJECTIVE: The patient is clinically stable, no acute events overnight. No fevers, chills, nausea or vomiting. No shortness of breath. OBJECTIVE: VITAL SIGNS: Blood pressure 120/57, respirations 18, pulse 56, temperature 98.0. HEENT: Head is normocephalic. NECK: Supple. HEART: Regular rate. LUNGS: Show diminished breath sounds at the bases. ABDOMEN: Soft, nontender to palpation. No rebound or guarding. EXTREMITIES: Negative for clubbing, cyanosis. No edema. DERMATOLOGIC: No rashes. MUSCULOSKELETAL: No joint effusions. NEUROLOGIC: No change in exam. MEDICATIONS: The patient's medications have been reviewed. LABORATORY DATA: Currently pending. Urinalysis shows FENa less than 1%. ASSESSMENT AND PLAN: 1. Nonoliguric acute kidney injury on top of chronic kidney disease with a history nephrectomy. Et iology of current acute kidney injury is secondary to hemodynamics due to diuretic therapy and LEONIE i nhibitor effect. The patient's renal function has shown initial improvement after de-escalating Las ix and holding LEONIE inhibitor. The patient's urinalysis is otherwise bland, nonactive. The patient' s FENa is less than 1%, which can be seen in cardiorenal syndrome and prerenal volume depletion. At this point, we will follow up renal panel this morning. If renal function continues to improve, sherin mcgill introduce low-dose diuretic therapy in the next 24 hours. Would continue to hold LEONIE inhibitor. 2. Chronic kidney disease secondary to left nephrectomy, possible underlying hypertensive and diabe tic renal disease. The patient is currently in acute kidney injury as stated above. The patient's urinalysis is otherwise bland. The patient has no significant proteinuria. At this point, we will continue to treat underlying acute kidney injury and we will continue disease factor modification wi th good glycemic and blood pressure control. 3. Anemia of chronic disease. Continue to monitor hemoglobin and hematocrit levels. 4. Mineral bone disorder. Continue to monitor calcium and phosphorus levels. 5. Acute congestive heart failure exacerbation, systolic and diastolic. The patient is clinically improved with medical management and diuretic therapy. Currently Lasix and LEONIE inhibitor on hold du e to worsening renal function. We will continue to monitor. Follow up with our esteemed cardiology colleagues for further recommendations. 6. History of coronary artery disease, status post percutaneous coronary intervention. Continue me dical management. 7. Hypertension. Blood pressure well controlled. 8. Diabetes. Continue current insulin regimen. 9. History of renal tumor, status post nephrectomy. 10. History of chronic obstructive pulmonary disease. Continue current treatment plan. 11. Acute hypoxic respiratory failure secondary to congestive heart failure exacerbation. The kenn ent is clinically improving. Continue to monitor. 12. Nondisplaced proximal right femoral fracture. The patient evaluated by orthopedic surger y, recommend immobilization. Dictated By: NANCY FERNANDEZ/CASSIE Conf#: [id number] DID#: [id number]
[2016-07-17 10:55] LABS: CALCIUM 9.1 mg/dl (8.4-10.2); CREATININE 1.84 mg/dl (0.61-1.24); POTASSIUM 4.6 mmol/L (3.5-5.1)
[2016-07-17 11:09] LABS: BASOPHILS % 0.6 % (0.0-2.0); EOSINOPHILS # 0.3 10^3/ul (0.0-0.5); EOSINOPHILS % 4.5 % (0.0-7.0); HEMATOCRIT 26.2 % (42.0-52.0); HEMOGLOBIN 8.2 g/dl (14.0-18.0); LYMPHOCYTES # 0.9 10^3/ul (0.8-2.9); LYMPHOCYTES % 14.8 % (15.0-51.0); MEAN CORPUSCULAR HEMOGLOBIN 27.4 pg (29.0-33.0); MEAN CORPUSCULAR HGB CONC 31.3 g/dl (32.0-37.0); MEAN CORPUSCULAR VOLUME 87.6 fl (82.0-101.0); MEAN PLATELET VOLUME 12.6 fl (7.4-10.4); MONOCYTE # 0.8 10^3/ul (0.3-0.9); MONOCYTES % 12.3 % (0.0-11.0); NEUTROPHIL # 4.2 10^3/ul (1.6-7.5); NEUTROPHILS % 67.5 % (39.0-77.0); PLATELET COUNT 166 10^3/UL (140-415); RED BLOOD COUNT 2.99 10^6/ul (4.70-6.10); RED CELL DISTRIBUTION WIDTH 14.7 % (11.5-14.5); WHITE BLOOD COUNT 6.3 10^3/ul (4.8-10.8)
--- NOTE | 2016-07-17 11:33 | CONS ---
Date/Time of Note Date/Time of Note DATE: 07/17/16 TIME: 11:32 Assessment/Plan Assessment/Plan Additional Assessment/Plan Assessment recommendations; next 1. Patient admitted for CHF exacerbation with marked clinical and radiological improvement. 2. Renal insufficiency, with continually improving serum creatinine. 3. Likely underlying sleep apnea. 4. Hypertension. 5. Obesity.. Continue current treatment. Patient will need to have a sleep study on outpatient basis. Consultation Date/Type/Reason Admit Date/Time Jul 12, 2016 at 04:20 Type of Consultation: Pulmonary 24 HR Interval Summary Free Text/Dictation Patient condition is stable. Denies any shortness of breath, chest pain, coughing wheezing or sputum production. General exam; elderly male, appears quite overweight, currently in no distress, awake and alert. Exam/Review of Systems Vital Signs Vitals Vital Signs Date Time Temp Pulse Resp B/P Pulse Ox O2 Delivery O2 Flow Rate FiO2 07/17/16 11:20 98.5 78 18 107/56 99 07/17/16 07:45 Nasal Cannula 3.0 07/13/16 10:48 32 Intake and Output 07/16/16 07/16/16 07/17/16 15:00 23:00 07:00 Intake Total 1000 ml 650 ml Output Total 900 ml Balance 100 ml 650 ml Exam HEENT exam is; supple neck, no JVD. No lymphadenopathy. Midline trachea. No thyromegaly. Pharynx is clear. Chest examination ME: To auscultation. S1-S2 audible, no murmurs. Regular rhythm. Abdomen examination; soft, non-distended. No organomegaly. Bowel sounds audible. Extremity exam is; no peripheral edema. Pulses 1+ bilaterally. USED [employer] MECH[employer]IC examination; no focal deficit. Results Result Diagram: 07/17/16 0725 07/17/16 0725 Results 24 hrs Laboratory Tests Test 07/16/16 12:13 07/16/16 14:50 07/16/16 16:58 07/16/16 22:00 Bedside Glucose 133 136 110 Urine Color LT. YELLOW Urine Clarity CLEAR Urine pH 5.0 Urine Specific [place] 1.020 Urine Ketones NEGATIVE Urine Nitrite NEGATIVE Urine Bilirubin NEGATIVE Urine Urobilinogen 0.2 E.U./dL Urine Leukocyte Esterase TRACE H Urine Microscopic RBC NONE SEEN Urine Microscopic WBC 5-10 Urine Transitional Epithelial Cells FEW Urine Amorphous Urates FEW Urine Bacteria FEW Urine Hemoglobin NEGATIVE Urine Random Creatinine 164.35 Urine Random Sodium 24 L Urine Glucose NEGATIVE Urine Total Protein 11.0 Test 07/17/16 07:25 07/17/16 08:12 White Blood Count 6.3 # Red Blood Count 2.99 L Hemoglobin 8.2 L Hematocrit 26.2 L Mean Corpuscular Volume 87.6 Mean Corpuscular Hemoglobin 27.4 L Mean Corpuscular Hemoglobin Concent 31.3 L Red Cell Distribution Width 14.7 H Platelet Count 166 Mean Platelet Volume 12.6 H Neutrophils % 67.5 Lymphocytes % 14.8 L Monocytes % 12.3 H Eosinophils % 4.5 Basophils % 0.6 Nucleated Red Blood Cells % 0.0 Neutrophils # 4.2 Lymphocytes # 0.9 Monocytes # 0.8 Eosinophils # 0.3 Basophils # 0.0 Nucleated Red Blood Cells # 0.0 Sodium Level 133 L Potassium Level 4.6 Chloride Level 99 Carbon Dioxide Level 26 Anion Gap 13 Blood Urea Nitrogen 78 H Creatinine 1.84 H Glucose Level 100 Calcium Level 9.1 Phosphorus Level 4.5 Magnesium Level 2.0 Bedside Glucose 109 Medications Medications Current Medications Metoclopramide HCl (Reglan) 10 mg Q6H PRN IV NAUSEA AND/OR VOMITING; Start at 04:30 Nitroglycerin (Nitroglycerin (Sl Tab) 0.4 Mg) 1 tab Q5M PRN SL CHEST PAIN; Start 07/12/16 at 04:30 Acetaminophen (Tylenol Liquid) 650 mg Q6H PRN PO PAIN LEVEL 1-3 OR FEVER; Start 07/12/16 at 04:30 Acetaminophen/ Hydrocodone Bitart ([place] (5/325)) 1 tab Q6H PRN PO PAIN LEVEL 4 -6; Start 07/12/16 at 04:30 Acetaminophen/ Hydrocodone Bitart ([place] (5/325)) 2 tab Q6H PRN PO PAIN LEVEL 7 -10; Start 07/12/16 at 04:30 Lorazepam (Ativan) 0.5 mg Q4 PRN IV ANXIETY; Start 07/12/16 at 04:30 Famotidine (Pepcid) 20 mg Q12 PO Last administered on 07/17/16 09:03; Admin Dose 20 MG; Start 07/12/16 at 09:00 Clopidogrel Bisulfate (plaVIX) 75 mg DAILY PO Last administered on 07/17/16 09 :02; Admin Dose 75 MG; Start 07/12/16 at 09:00 Miscellaneous Information 1 ea NOTE XX ; Start 07/12/16 at 04:30 Glucose (Glutose) 15 gm Q15M PRN PO DECREASED GLUCOSE; Start 07/12/16 at 04:30 Glucose (Glutose) 22.5 gm Q15M PRN PO DECREASED GLUCOSE; Start 07/12/16 at 04: 30 Dextrose (D50w Syringe) 25 ml Q15M PRN IV DECREASED GLUCOSE; Start 07/12/16 at 04:30 Dextrose (D50w Syringe) 50 ml Q15M PRN IV DECREASED GLUCOSE; Start 07/12/16 at 04:30 Glucagon (Glucagen) 1 mg Q15M PRN IM DECREASED GLUCOSE; Start 07/12/16 at 04:30 Glucose (Glutose) 15 gm Q15M PRN BUCCAL DECREASED GLUCOSE; Start 07/12/16 at 04 :30 Aspirin (Aspirin) 81 mg DAILY PO Last administered on 07/17/16 09:03; Admin Dose 81 MG; Start 07/13/16 at 09:00 Atorvastatin Calcium (Lipitor) 40 mg DAILY@21 PO Last administered on 22:03; Admin Dose 40 MG; Start 07/12/16 at 21:00 Hydralazine HCl (Apresoline) 10 mg Q6H PRN IV ELEVATED BLOOD PRESSURE Last administered on 07/13/16 10:17; Admin Dose 10 MG; Start 07/13/16 at 09:00 Carvedilol (Coreg) 3.125 mg BID PO Last administered on 07/14/16 14:36; Admin Dose 3.125 MG; Start 07/14/16 at 13:00 Ferrous Sulfate (Ferrous Sulfate (Ec)) 325 mg TID PO Last administered on 09:03; Admin Dose 325 MG; Start 07/16/16 at 13:00 MARSHA ALCANTARA Jul 17, 2016 11:33
--- NOTE | 2016-07-17 12:16 | PN ---
Date/Time of Note Date/Time of Note DATE: 07/17/16 TIME: 12:11 Assessment/Plan VTE Prophylaxis VTE Prophylaxis Intervention: ambulation, SCD's Lines/Catheters IV Catheter Type (from Nrs): Saline Lock Urinary Cath still in place: No Assessment/Plan Chief Complaint/Hosp Course Assessment and plan 1. Acute hypoxic and hypercapnic respiratory failure secondary to CHF exacerbation. Patient remains off O2 at this time. Continue on bronchodilators as needed. Improved at present. 2. CHF with exacerbation. Acute on chronic. Noted with systolic and diastolic dysfunction. Monitor renal function with careful diuresis. Personnel Associate following. Appears to be improving at present 3. History of cardiomyopathy with EF of 45%. Continue optimization with beta abhay and LEONIE. LEONIE inhibitor on hold secondary to worse renal function 4. Reported known ST elevation myocardial infarction. Likely type II in the setting of renal dysfunction. In the setting of renal dysfunction. Likely type II. Stable at present. Continue with soft tile setter recommendation 5. Essential hypertension. Stable at present. Continue antihypertensives and adjust as needed 6. Anemia with iron deficiency. Continue iron supplement 7. Acute on chronic kidney disease. Medications to be renally dosed. Continue with nephrology recommendations. Monitor renal panel. 8. Displaced comminuted proximal right humeral head fracture. Patient was evaluated by orthopedic surgeon. No plan for surgical intervention at this time. Continue immobilization on sling. [facility] for [facility] at [facility] for this issue. Physical therapy following 9. History of CAD. Continue on antiplatelet therapy and statin medication 10. History of type 2 diabetes. Appears controlled with A1c noted at 5.7. Monitor for now. GERD prophylaxis: H2 abhay Disposition and plan: Renally dose medications. Monitor renal panel. Appears to be improving. Discharge when medically stable and cleared by consultants. Discussed plan of care with Dr. Mackay Problems: Subjective 24 Hr Interval Summary Free Text/Dictation Reports better breathing at this time. No apparent distress. Family at bedside. Exam/Review of Systems Vital Signs Vitals Vital Signs Date Time Temp Pulse Resp B/P Pulse Ox O2 Delivery O2 Flow Rate FiO2 07/17/16 11:20 98.5 78 18 107/56 99 07/17/16 07:45 Nasal Cannula 3.0 07/13/16 10:48 32 Intake and Output 07/16/16 07/16/16 07/17/16 15:00 23:00 07:00 Intake Total 1000 ml 650 ml Output Total 900 ml Balance 100 ml 650 ml Exam Constitutional: alert, oriented Psych: nl mood/affect Head: normocephalic Eyes: other (Disconjugate gaze) Neck: non-tender, supple Respiratory: clear to auscultation, normal air movement Cardiovascular: other (Regular rate) Gastrointestinal: non-tender, soft Musculoskeletal: No swelling Neurological: IN SCHOOL SUSPENSION AIDE II-XII intact, nl mental status, nl speech Skin: nl turgor Results Result Diagram: 07/17/1625 07/17/16 0725 Results 24 hrs Laboratory Tests Test 07/16/16 12:13 07/16/16 14:50 07/16/16 16:58 07/16/16 22:00 Bedside Glucose 133 136 110 Urine Color LT. YELLOW Urine Clarity CLEAR Urine pH 5.0 Urine Specific [place] 1.020 Urine Ketones NEGATIVE Urine Nitrite NEGATIVE Urine Bilirubin NEGATIVE Urine Urobilinogen 0.2 E.U./dL Urine Leukocyte Esterase TRACE H Urine Microscopic RBC NONE SEEN Urine Microscopic WBC 5-10 Urine Transitional Epithelial Cells FEW Urine Amorphous Urates FEW Urine Bacteria FEW Urine Hemoglobin NEGATIVE Urine Random Creatinine 164.35 Urine Random Sodium 24 L Urine Glucose NEGATIVE Urine Total Protein 11.0 Test 07/17/16 07:25 07/17/16 08:12 White Blood Count 6.3 # Red Blood Count 2.99 L Hemoglobin 8.2 L Hematocrit 26.2 L Mean Corpuscular Volume 87.6 Mean Corpuscular Hemoglobin 27.4 L Mean Corpuscular Hemoglobin Concent 31.3 L Red Cell Distribution Width 14.7 H Platelet Count 166 Mean Platelet Volume 12.6 H Neutrophils % 67.5 Lymphocytes % 14.8 L Monocytes % 12.3 H Eosinophils % 4.5 Basophils % 0.6 Nucleated Red Blood Cells % 0.0 Neutrophils # 4.2 Lymphocytes # 0.9 Monocytes # 0.8 Eosinophils # 0.3 Basophils # 0.0 Nucleated Red Blood Cells # 0.0 Sodium Level 133 L Potassium Level 4.6 Chloride Level 99 Carbon Dioxide Level 26 Anion Gap 13 Blood Urea Nitrogen 78 H Creatinine 1.84 H Glucose Level 100 Calcium Level 9.1 Phosphorus Level 4.5 Magnesium Level 2.0 Bedside Glucose 109 Medications Medications Current Medications Metoclopramide HCl (Reglan) 10 mg Q6H PRN IV NAUSEA AND/OR VOMITING; Start at 04:30 Nitroglycerin (Nitroglycerin (Sl Tab) 0.4 Mg) 1 tab Q5M PRN SL CHEST PAIN; Start 07/12/16 at 04:30 Acetaminophen (Tylenol Liquid) 650 mg Q6H PRN PO PAIN LEVEL 1-3 OR FEVER; Start 07/12/16 at 04:30 Acetaminophen/ Hydrocodone Bitart ([place] (5/325)) 1 tab Q6H PRN PO PAIN LEVEL 4 -6; Start 07/12/16 at 04:30 Acetaminophen/ Hydrocodone Bitart ([place] (5/325)) 2 tab Q6H PRN PO PAIN LEVEL 7 -10; Start 07/12/16 at 04:30 Lorazepam (Ativan) 0.5 mg Q4 PRN IV ANXIETY; Start 07/12/16 at 04:30 Famotidine (Pepcid) 20 mg Q12 PO Last administered on 07/17/16 09:03; Admin Dose 20 MG; Start 07/12/16 at 09:00 Clopidogrel Bisulfate (plaVIX) 75 mg DAILY PO Last administered on 07/17/16 09 :02; Admin Dose 75 MG; Start 07/12/16 at 09:00 Miscellaneous Information 1 ea NOTE XX ; Start 07/12/16 at 04:30 Glucose (Glutose) 15 gm Q15M PRN PO DECREASED GLUCOSE; Start 07/12/16 at 04:30 Glucose (Glutose) 22.5 gm Q15M PRN PO DECREASED GLUCOSE; Start 07/12/16 at 04: 30 Dextrose (D50w Syringe) 25 ml Q15M PRN IV DECREASED GLUCOSE; Start 07/12/16 at 04:30 Dextrose (D50w Syringe) 50 ml Q15M PRN IV DECREASED GLUCOSE; Start 07/12/16 at 04:30 Glucagon (Glucagen) 1 mg Q15M PRN IM DECREASED GLUCOSE; Start 07/12/16 at 04:30 Glucose (Glutose) 15 gm Q15M PRN BUCCAL DECREASED GLUCOSE; Start 07/12/16 at 04 :30 Aspirin (Aspirin) 81 mg DAILY PO Last administered on 07/17/16 09:03; Admin Dose 81 MG; Start 07/13/16 at 09:00 Atorvastatin Calcium (Lipitor) 40 mg DAILY@ PO Last administered on 22:03; Admin Dose 40 MG; Start 07/12/16 at 21:00 Hydralazine HCl (Apresoline) 10 mg Q6H PRN IV ELEVATED BLOOD PRESSURE Last administered on 07/13/16 10:17; Admin Dose 10 MG; Start 07/13/16 at 09:00 Carvedilol (Coreg) 3.125 mg BID PO Last administered on 07/14/16 14:36; Admin Dose 3.125 MG; Start 07/14/16 at 13:00 Ferrous Sulfate (Ferrous Sulfate (Ec)) 325 mg TID PO Last administered on 09:03; Admin Dose 325 MG; Start 07/16/16 at 13:00 SONAM MEDEL Jul 17, 2016 12:16
--- NOTE | 2016-07-17 14:10 | CONS ---
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 Continue antiplatelet therapy, statin therapy, beta- blockers as heart rate and blood pressure permits. Restart maintenance diuretics when okay by our nephrology colleagues. Consultation Date/Type/Reason Admit Date/Time Jul 12, 2016 at 04:20 Type of Consultation: cv 24 HR Interval Summary Free Text/Dictation Continues to feel better, denies shortness of breath with ambulation, denies chest pain Exam/Review of Systems Vital Signs Vitals Vital Signs Date Time Temp Pulse Resp B/P Pulse Ox O2 Delivery O2 Flow Rate FiO2 07/17/16 12:29 68 07/17/16 11:20 98.5 18 107/56 99 07/17/16 07:45 Nasal Cannula 3.0 07/13/16 10:48 32 Intake and Output 07/16/16 07/16/16 07/17/16 15:00 23:00 07:00 Intake Total 1000 ml 650 ml Output Total 900 ml Balance 100 ml 650 ml Exam Sitting in chair, no apparent distress Constitutional: alert, obese, oriented Head: normocephalic Respiratory: other (Coarse breath sounds bilaterally, no wheezing) Cardiovascular: other (S1-S2 heard), regular rate and rhythm Gastrointestinal: bowel sounds, non-tender, soft Extremities: edema (Trace) Results Result Diagram: 07/17/16 0725 07/17/16 0725 Results 24 hrs Laboratory Tests Test 07/16/16 14:50 07/16/16 16:58 07/16/16 22:00 07/17/16 07:25 Urine Color LT. YELLOW Urine Clarity CLEAR Urine pH 5.0 Urine Specific [place] 1.020 Urine Ketones NEGATIVE Urine Nitrite NEGATIVE Urine Bilirubin NEGATIVE Urine Urobilinogen 0.2 E.U./dL Urine Leukocyte Esterase TRACE H Urine Microscopic RBC NONE SEEN Urine Microscopic WBC 5-10 Urine Transitional Epithelial Cells FEW Urine Amorphous Urates FEW Urine Bacteria FEW Urine Hemoglobin NEGATIVE Urine Random Creatinine 164.35 Urine Random Sodium 24 L Urine Glucose NEGATIVE Urine Total Protein 11.0 Bedside Glucose 136 110 White Blood Count 6.3 # Red Blood Count 2.99 L Hemoglobin 8.2 L Hematocrit 26.2 L Mean Corpuscular Volume 87.6 Mean Corpuscular Hemoglobin 27.4 L Mean Corpuscular Hemoglobin Concent 31.3 L Red Cell Distribution Width 14.7 H Platelet Count 166 Mean Platelet Volume 12.6 H Neutrophils % 67.5 Lymphocytes % 14.8 L Monocytes % 12.3 H Eosinophils % 4.5 Basophils % 0.6 Nucleated Red Blood Cells % 0.0 Neutrophils # 4.2 Lymphocytes # 0.9 Monocytes # 0.8 Eosinophils # 0.3 Basophils # 0.0 Nucleated Red Blood Cells # 0.0 Sodium Level 133 L Potassium Level 4.6 Chloride Level 99 Carbon Dioxide Level 26 Anion Gap 13 Blood Urea Nitrogen 78 H Creatinine 1.84 H Glucose Level 100 Calcium Level 9.1 Phosphorus Level 4.5 Magnesium Level 2.0 Test 07/17/16 08:12 07/17/16 12:22 Bedside Glucose 109 139 Medications Medications Current Medications Metoclopramide HCl (Reglan) 10 mg Q6H PRN IV NAUSEA AND/OR VOMITING; Start at 04:30 Nitroglycerin (Nitroglycerin (Sl Tab) 0.4 Mg) 1 tab Q5M PRN SL CHEST PAIN; Start 07/12/16 at 04:30 Acetaminophen (Tylenol Liquid) 650 mg Q6H PRN PO PAIN LEVEL 1-3 OR FEVER; Start 07/12/16 at 04:30 Acetaminophen/ Hydrocodone Bitart ([place] (5/325)) 1 tab Q6H PRN PO PAIN LEVEL 4 -6; Start 07/12/16 at 04:30 Acetaminophen/ Hydrocodone Bitart ([place] (5/325)) 2 tab Q6H PRN PO PAIN LEVEL 7 -10; Start 07/12/16 at 04:30 Lorazepam (Ativan) 0.5 mg Q4 PRN IV ANXIETY; Start 07/12/16 at 04:30 Famotidine (Pepcid) 20 mg Q12 PO Last administered on 07/17/16 09:03; Admin Dose 20 MG; Start 07/12/16 at 09:00 Clopidogrel Bisulfate (plaVIX) 75 mg DAILY PO Last administered on 07/17/16 09 :02; Admin Dose 75 MG; Start 07/12/16 at 09:00 Miscellaneous Information 1 ea NOTE XX ; Start 07/12/16 at 04:30 Glucose (Glutose) 15 gm Q15M PRN PO DECREASED GLUCOSE; Start 07/12/16 at 04:30 Glucose (Glutose) 22.5 gm Q15M PRN PO DECREASED GLUCOSE; Start 07/12/16 at 04: 30 Dextrose (D50w Syringe) 25 ml Q15M PRN IV DECREASED GLUCOSE; Start 07/12/16 at 04:30 Dextrose (D50w Syringe) 50 ml Q15M PRN IV DECREASED GLUCOSE; Start 07/12/16 at 04:30 Glucagon (Glucagen) 1 mg Q15M PRN IM DECREASED GLUCOSE; Start 07/12/16 at 04:30 Glucose (Glutose) 15 gm Q15M PRN BUCCAL DECREASED GLUCOSE; Start 07/12/16 at 04 :30 Aspirin (Aspirin) 81 mg DAILY PO Last administered on 07/17/16 09:03; Admin Dose 81 MG; Start 07/13/16 at 09:00 Atorvastatin Calcium (Lipitor) 40 mg DAILY@21 PO Last administered on 22:03; Admin Dose 40 MG; Start 07/12/16 at 21:00 Hydralazine HCl (Apresoline) 10 mg Q6H PRN IV ELEVATED BLOOD PRESSURE Last administered on 07/13/16 10:17; Admin Dose 10 MG; Start 07/13/16 at 09:00 Carvedilol (Coreg) 3.125 mg BID PO Last administered on 07/14/16 14:36; Admin Dose 3.125 MG; Start 07/14/16 at 13:00 Ferrous Sulfate (Ferrous Sulfate (Ec)) 325 mg TID PO Last administered on 12:23; Admin Dose 325 MG; Start 07/16/16 at 13:00 Dayron Davenport DO Jul 17, 2016 14:10
[2016-07-17] MEDS: ATORVASTATIN 40 MG TAB PO SCH (21:01)
[2016-07-18] VITALS (9 sets, daily range): BP systolic 130–154; BP diastolic 60–80; PULSE 48–63; RESP 18–19
[2016-07-18 06:49] LABS: ADD SCAN DIFF NO
[2016-07-18 06:51] LABS: BASOPHIL # 0.1 10^3/ul (0.0-0.1); BASOPHILS % 0.8 % (0.0-2.0); EOSINOPHILS # 0.2 10^3/ul (0.0-0.5); EOSINOPHILS % 3.8 % (0.0-7.0); HEMATOCRIT 27.6 % (42.0-52.0); HEMOGLOBIN 8.9 g/dl (14.0-18.0); LYMPHOCYTES # 1.2 10^3/ul (0.8-2.9); LYMPHOCYTES % 19.5 % (15.0-51.0); MEAN CORPUSCULAR HEMOGLOBIN 28.2 pg (29.0-33.0); MEAN CORPUSCULAR HGB CONC 32.2 g/dl (32.0-37.0); MEAN CORPUSCULAR VOLUME 87.3 fl (82.0-101.0); MEAN PLATELET VOLUME 11.9 fl (7.4-10.4); MONOCYTE # 0.7 10^3/ul (0.3-0.9); MONOCYTES % 11.3 % (0.0-11.0); NEUTROPHIL # 3.9 10^3/ul (1.6-7.5); NEUTROPHILS % 64.1 % (39.0-77.0); PLATELET COUNT 196 10^3/UL (140-415); RED BLOOD COUNT 3.16 10^6/ul (4.70-6.10); RED CELL DISTRIBUTION WIDTH 14.6 % (11.5-14.5); WHITE BLOOD COUNT 6.1 10^3/ul (4.8-10.8)
[2016-07-18 07:05] LABS: CALCIUM 9.4 mg/dl (8.4-10.2); CREATININE 1.58 mg/dl (0.61-1.24); MAGNESIUM 2.2 mg/dl (1.7-2.5); PHOSPHORUS 3.9 mg/dl (2.5-4.9); POTASSIUM 4.9 mmol/L (3.5-5.1)
[2016-07-18] MEDS: INSULIN ASPART [NOVOLOG] 3 ML PEN SC SCH ×3 (07:55→17:55)
[2016-07-18] MEDS: CLOPIDOGREL 75 MG TAB PO SCH (08:33)
[2016-07-18] MEDS: FAMOTIDINE 20 MG TAB PO SCH (08:33)
[2016-07-18] MEDS: ASPIRIN 81 MG TAB PO SCH (08:33)
[2016-07-18] MEDS: FERROUS SULFATE (EC) 325 MG TAB PO SCH ×2 (08:33→12:29)
[2016-07-18] MEDS ORDERED: ATOR40TA68 PO (10:31)
[2016-07-18] MEDS ORDERED: CARV3.1260 PO (10:31)
[2016-07-18] MEDS ORDERED: FURO40TA4 PO (10:31)
[2016-07-18] MEDS ORDERED: FER325 PO (10:31)
--- NOTE | 2016-07-18 10:34 | PDOCDIS ---
Discharge Instructions DIAGNOSIS Discharge Diagnosis: 1. Hypoxic respiratory failure secondary to CHF exacerbation 2. Cardiomyop CONDITION Patient Condition: Stable HOME CARE INSTRUCTIONS: Diet Instructions: Low Fat /CholesterolSpecial Diet: 1800 Pablo 2gm Na FOLLOW UP/APPOINTMENTS Appointments 1. Follow up with Dr. Rocael Sandhu in 1-2 weeks 2. Follow up with Dr. Dayron Davenport in 1 week 3. Follow up with [facility] for further management and care SONAM MEDEL Jul 18, 2016 10:34
--- NOTE | 2016-07-18 10:51 | PN ---
DATE: SUBJECTIVE: The patient is stable. No events overnight. No hemoptysis, hematemesis or hematochezi a. OBJECTIVE: VITAL SIGNS: Blood pressure 132/65, respiration 18, pulse 59, temperature 98.3. I's AND O'S: The patient had 1300 in with 950 out. HEENT: Head is normocephalic. NECK: Supple. HEART: Regular rate. LUNGS: Show diminished breath sounds at base. ABDOMEN: Soft, nontender to palpation. No rebound or guarding. EXTREMITIES: Negative for clubbing, cyanosis, no edema. DERMATOLOGIC: No rashes. MUSCULOSKELETAL: No joint effusions. NEUROLOGIC: No change in exam. MEDICATIONS: The patient's medications have been reviewed. LABORATORY DATA: Shows sodium 135, potassium 4.9, BUN 74, creatinine 1.58. White count 6.1, hemogl obin 8.9, hematocrit ____, platelet count 196,000. ASSESSMENT AND PLAN: 1. Nonoliguric acute kidney injury on top of chronic kidney disease with a history of nephrectomy. Etiology of acute kidney injury is secondary to hemodynamics. The patient's renal function has imp roved and returned back to initial creatinine of 1.6 mg/dL on admission. Unclear if this is patient 's baseline. Plan at this point would be to resume diuretic therapy of Lasix 20 mg daily. Monitor renal function. If it remains stable, may reintroduce the patient on low-dose LEONIE inhibitor. 2. Chronic kidney disease secondary to left nephrectomy, possible underlying hypertensive diabetic disease. The patient is currently acute kidney injury as stated above. At this point, we will cont inue current treatment plan. We will reintroduce diuretic therapy. We will consider reintroducing LEONIE inhibitor if renal function remains stable. 3. Anemia of chronic disease. Continue to monitor hemoglobin and hematocrit levels. 4. Mineral bone disorder. Continue to monitor calcium and phosphorus levels. 5. Acute congestive heart failure exacerbation, systolic and diastolic. The patient is clinically improved. We will reintroduce diuretic therapy. We will follow up with our cardiology colleagues f or further recommendations. 6. History of coronary artery disease, status post percutaneous coronary intervention. Continue me dical management. 7. Hypertension. Continue current blood pressure regimen. 8. Diabetes. Continue Accu-Cheks and sliding scale. 9. History of renal tumor, status post nephrectomy. 10. Acute respiratory failure secondary to CHF exacerbation, clinically improving. Continue to thi tor. 11. Nondisplaced fracture. Continue immobilization. Dictated By: NANCY FERNANDEZ/CASSIE Conf#: [id number] DID#: [id number]
--- NOTE | 2016-07-18 13:06 | CONS ---
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 Continue antiplatelet therapy, statin therapy, patient with bradycardia and low 40s on telemetry and asymptomatic, on low-dose beta-abhay, would DC. Patient restarted on maintenance diuretics and being followed by nephrology. DC planning Consultation Date/Type/Reason Admit Date/Time Jul 12, 2016 at 04:20 Type of Consultation: cv 24 HR Interval Summary Free Text/Dictation Feeling better, denies shortness of breath, dizziness Exam/Review of Systems Vital Signs Vitals Vital Signs Date Time Temp Pulse Resp B/P Pulse Ox O2 Delivery O2 Flow Rate FiO2 07/18/16 12:03 63 07/18/16 11:26 98.4 18 130/60 100 07/18/16 07:34 Nasal Cannula 3.0 Intake and Output 07/17/16 07/17/16 07/18/16 15:00 23:00 07:00 Intake Total 840 ml 500 ml Output Total 950 ml Balance -110 ml 500 ml Exam Sitting in chair, no apparent distress Constitutional: alert, obese, oriented Head: normocephalic Neck: supple Respiratory: other (Coarse breath sounds bilaterally, no wheezing) Cardiovascular: other (S1-S2 heard), regular rate and rhythm Gastrointestinal: bowel sounds, non-tender, soft Extremities: edema (Trace) Results Result Diagram: 07/18/16 0625 07/18/16 0625 Results 24 hrs Laboratory Tests Test 07/17/16 17:37 07/17/16 20:39 07/18/16 06:25 07/18/16 08:01 Bedside Glucose 113 143 116 White Blood Count 6.1 Red Blood Count 3.16 L Hemoglobin 8.9 L Hematocrit 27.6 L Mean Corpuscular Volume 87.3 Mean Corpuscular Hemoglobin 28.2 L Mean Corpuscular Hemoglobin Concent 32.2 Red Cell Distribution Width 14.6 H Platelet Count 196 Mean Platelet Volume 11.9 H Neutrophils % 64.1 Lymphocytes % 19.5 Monocytes % 11.3 H Eosinophils % 3.8 Basophils % 0.8 Nucleated Red Blood Cells % 0.0 Neutrophils # 3.9 Lymphocytes # 1.2 Monocytes # 0.7 Eosinophils # 0.2 Basophils # 0.1 Nucleated Red Blood Cells # 0.0 Sodium Level 135 Potassium Level 4.9 Chloride Level 99 Carbon Dioxide Level 28 Anion Gap 13 Blood Urea Nitrogen 74 H Creatinine 1.58 H Glucose Level 119 Calcium Level 9.4 Phosphorus Level 3.9 Magnesium Level 2.2 Test 07/18/16 12:05 Bedside Glucose 188 Medications Medications Current Medications Metoclopramide HCl (Reglan) 10 mg Q6H PRN IV NAUSEA AND/OR VOMITING; Start at 04:30 Nitroglycerin (Nitroglycerin (Sl Tab) 0.4 Mg) 1 tab Q5M PRN SL CHEST PAIN; Start 07/12/16 at 04:30 Acetaminophen (Tylenol Liquid) 650 mg Q6H PRN PO PAIN LEVEL 1-3 OR FEVER; Start 07/12/16 at 04:30 Acetaminophen/ Hydrocodone Bitart ([place] (5/325)) 1 tab Q6H PRN PO PAIN LEVEL 4 -6; Start 07/12/16 at 04:30 Acetaminophen/ Hydrocodone Bitart ([place] (5/325)) 2 tab Q6H PRN PO PAIN LEVEL 7 -10; Start 07/12/16 at 04:30 Lorazepam (Ativan) 0.5 mg Q4 PRN IV ANXIETY; Start 07/12/16 at 04:30 Famotidine (Pepcid) 20 mg Q12 PO Last administered on 07/18/16 08:33; Admin Dose 20 MG; Start 07/12/16 at 09:00 Clopidogrel Bisulfate (plaVIX) 75 mg DAILY PO Last administered on 07/18/16 08 :33; Admin Dose 75 MG; Start 07/12/16 at 09:00 Miscellaneous Information 1 ea NOTE XX ; Start 07/12/16 at 04:30 Glucose (Glutose) 15 gm Q15M PRN PO DECREASED GLUCOSE; Start 07/12/16 at 04:30 Glucose (Glutose) 22.5 gm Q15M PRN PO DECREASED GLUCOSE; Start 07/12/16 at 04: 30 Dextrose (D50w Syringe) 25 ml Q15M PRN IV DECREASED GLUCOSE; Start 07/12/16 at 04:30 Dextrose (D50w Syringe) 50 ml Q15M PRN IV DECREASED GLUCOSE; Start 07/12/16 at 04:30 Glucagon (Glucagen) 1 mg Q15M PRN IM DECREASED GLUCOSE; Start 07/12/16 at 04:30 Glucose (Glutose) 15 gm Q15M PRN BUCCAL DECREASED GLUCOSE; Start 07/12/16 at 04 :30 Aspirin (Aspirin) 81 mg DAILY PO Last administered on 07/18/16 08:33; Admin Dose 81 MG; Start 07/13/16 at 09:00 Atorvastatin Calcium (Lipitor) 40 mg DAILY@21 PO Last administered on 21:01; Admin Dose 40 MG; Start 07/12/16 at 21:00 Hydralazine HCl (Apresoline) 10 mg Q6H PRN IV ELEVATED BLOOD PRESSURE Last administered on 07/13/16 10:17; Admin Dose 10 MG; Start 07/13/16 at 09:00 Carvedilol (Coreg) 3.125 mg BID PO Last administered on 07/14/16 14:36; Admin Dose 3.125 MG; Start 07/14/16 at 13:00 Ferrous Sulfate (Ferrous Sulfate (Ec)) 325 mg TID PO Last administered on 12:29; Admin Dose 325 MG; Start 07/16/16 at 13:00 Furosemide (Lasix) 40 mg DAILY PO ; Start 07/19/16 at 09:00 Dayron Davenport DO Jul 18, 2016 13:06
[2016-07-18 14:33] LABS: MICROALBUMIN 0.9 mg/dL
--- NOTE | 2016-07-18 15:43 | DS ---
Date/Time of Note Date/Time of Note DATE: 07/18/16 TIME: 15:36 Discharge Summary Admission/Discharge Info Admit Date/Time Jul 12, 2016 at 04:20 Discharge Date/Time Final Diagnosis 1. Acute hypoxic and hypercapnic respiratory failure secondary to CHF exacerbation. 2. CHF with exacerbation. Acute on chronic. 3. History of cardiomyopathy with EF of 45%. 4. Reported known ST elevation myocardial infarction. Likely type II in the setting of renal dysfunction. I 5. Essential hypertension. 6. Anemia with iron deficiency. 7. Acute on chronic kidney disease. 8. Displaced comminuted proximal right humeral head fracture. 9. History of CAD. 10. History of type 2 diabetes. Patient Condition: Stable Consults 1. Dr. Dayron Davenport 2. Dr. Rocael Sandhu 3. Dr. Sal Griggs 4. Dr. Janneth Maloney 5. Dr. Loy DelatorrePeter Bent Brigham Hospital Course This is a 61-year-old male with history of COPD, CHF, hypertension, diabetes, who came to [facility] due to reports of respiratory distress. Patient was noted to be diaphoretic and tachypnea And tachycardic. He did come to the hospital and was shown with an x-ray that did show pulmonary edema. He was placed on BiPAP with clinical improvement. His ABG did show him to have hypercarbia. Patient also was noted with hypertensive urgency. Patient was initially placed on ICU monitoring and transfer to telemetry once he was stable. He was resumed on bronchodilators as needed as well as oxygen and eventually titrated off. He was noted with CHF with cardiomyopathy with ejection fraction at 45%. He did optimize him with case inhibitor and beta abhay. He was also diuresed carefully per nephrology as he was also seen with some acute on chronic change disease. Patient did have history of displaced comminuted proximal right humeral head fracture and for this he was seen by orthopedic surgeon. After reviewed is no need for any surgical intervention he was advised for further management and follow-up at [facility]. Patient did have elevated troponin and was seen by online content developer. Likely it was and systemic type II in the setting of renal dysfunction as well. Patient was otherwise optimized medically with antiplatelet therapy for CAD and insulin regimen for his diabetes. During his course of stay he did improve. He was reportedly breathing better. He was instructed to follow-up with his consultants as outpatient. The plan of care was discussed with the patient and patient did verbalize his understanding. On the day of discharge patient was in stable condition Discussed care with Dr. Mackay Discharge process time: 40 minutes Home Meds Active Scripts Furosemide* (Furosemide*) 40 Mg Tablet, 40 MG PO DAILY for 30 Days, TAB Prov:REGIDORCHRISTIANOSONAM 07/18/16 Ferrous Sulfate* (Ferrous Sulfate*) 325 Mg Tabec, 325 MG PO TID for 30 Days, TAB Prov:REGIDORSONAM 07/18/16 Atorvastatin* (Atorvastatin*) 40 Mg Tablet, 40 MG PO DAILY@21 for 30 Days, TAB Prov:REGIDORCHRISTIANOSONAM 07/18/16 Reported Medications Simvastatin (Simvastatin) 40 Mg Tablet, 1 TAB PO QHS 10/27/11 Furosemide (Lasix) 40 Mg Tab, 2 TAB PO BID 10/27/11 Clopidogrel Bisulfate (Plavix) 75 Mg Tablet, 1 TAB PO DAILY 10/27/11 Glimepiride* (Glimepiride*) 4 Mg Tablet, 1 TAB PO BID 10/27/11 Benazepril Hcl* (Benazepril Hcl*) 20 Mg Tablet, 1 TAB PO BID 10/27/11 Aspirin (Aspirin) 81 Mg Tablet, 1 TAB PO DAILY 10/27/11 Atorvastatin (Lipitor) 80 Mg Tablet, 1 TAB PO DAILY 10/27/11 Metformin* (Glucophage*) 1,000 Mg Tablet, 1 TAB PO BID 10/27/11 Discontinued Reported Medications [same meds] No Conflict Check 02/02/12 Follow-up Plan CONDITION Patient Condition: Stable HOME CARE INSTRUCTIONS: Diet Instructions: Low Fat /CholesterolSpecial Diet: 1800 Pablo 2gm Na FOLLOW UP/APPOINTMENTS Appointments 1. Follow up with Dr. Rocael Sandhu in 1-2 weeks 2. Follow up with Dr. Dayron Davenport in 1 week Pending Labs Laboratory Tests Test 07/17/16 17:37 07/17/16 20:39 07/18/16 06:25 07/18/16 08:01 Bedside Glucose 113mg/dL (70-220) 143mg/dL (70-220) 116mg/dL (70-220) White Blood Count 6.110^3/ul (4.8-10.8) Red Blood Count 3.1610^6/ul (4.70-6.10) Hemoglobin 8.9g/dl (14.0-18.0) Hematocrit 27.6% (42.0-52.0) Mean Corpuscular Volume 87.3fl (82.0-101.0) Mean Corpuscular Hemoglobin 28.2pg (29.0-33.0) Mean Corpuscular Hemoglobin Concent 32.2g/dl (32.0-37.0) Red Cell Distribution Width 14.6% (11.5-14.5) Platelet Count 30415^3/UL (140-415) Mean Platelet Volume 11.9fl (7.4-10.4) Neutrophils % 64.1% (39.0-77.0) Lymphocytes % 19.5% (15.0-51.0) Monocytes % 11.3% (0.0-11.0) Eosinophils % 3.8% (0.0-7.0) Basophils % 0.8% (0.0-2.0) Nucleated Red Blood Cells % 0.0/100WBC (0.0-0.0) Neutrophils # 3.910^3/ul (1.6-7.5) Lymphocytes # 1.210^3/ul (0.8-2.9) Monocytes # 0.710^3/ul (0.3-0.9) Eosinophils # 0.210^3/ul (0.0-0.5) Basophils # 0.110^3/ul (0.0-0.1) Nucleated Red Blood Cells # 0.010^3/ul (0.0-0.0) Sodium Level 135mmol/L (135-144) Potassium Level 4.9mmol/L (3.5-5.1) Chloride Level 99mmol/L (97-110) Carbon Dioxide Level 28mmol/L (21-31) Anion Gap 13 (8-16) Blood Urea Nitrogen 74mg/dl (7-20) Creatinine 1.58mg/dl (0.61-1.24) Glucose Level 119mg/dl (70-220) Calcium Level 9.4mg/dl (8.4-10.2) Phosphorus Level 3.9mg/dl (2.5-4.9) Magnesium Level 2.2mg/dl (1.7-2.5) Test 07/18/16 12:05 Bedside Glucose 188mg/dL (70-220) SONAM MEDEL Jul 18, 2016 15:43
[2016-07-19] MEDS ORDERED: FUROSEMIDE 40 MG TAB PO SCH (09:00)
== END 2016-07-18 19:03 | disposition home or self-care (01) | DRG 280 ==
LOC: E/R 00:36 → TEL 04:20
PROVIDERS: ADMIT Family Medicine; ATTEND Family Medicine
PROC: 5A0945Z Assistance with Respiratory Ventilation, 24-96 Consecutive Hours (ICD-10-PCS; principal; 2016-07-12)
DX: I13.0 Hypertensive heart and chronic kidney disease with heart failure and stage 1 through stage 4 chronic kidney disease, or unspecified chronic kidney disease (principal); J96.01 Acute respiratory failure with hypoxia; I21.4 Non-ST elevation (NSTEMI) myocardial infarction; N17.9 Acute kidney failure, unspecified; E11.21 Type 2 diabetes mellitus with diabetic nephropathy; S42.291A Other displaced fracture of upper end of right humerus, initial encounter for closed fracture; D64.9 Anemia, unspecified; J96.22 Acute and chronic respiratory failure with hypercapnia; I50.43 Acute on chronic combined systolic (congestive) and diastolic (congestive) heart failure; W19.XXXA Unspecified fall, initial encounter; G47.33 Obstructive sleep apnea (adult) (pediatric); I25.10 Atherosclerotic heart disease of native coronary artery without angina pectoris; Z91.11 Patient's noncompliance with dietary regimen; I25.5 Ischemic cardiomyopathy; S42.211D Unspecified displaced fracture of surgical neck of right humerus, subsequent encounter for fracture with routine healing; N18.9 Chronic kidney disease, unspecified; D50.9 Iron deficiency anemia, unspecified; Z90.5 Acquired absence of kidney
CPT/HCPCS: 36415; 36430; 36600; 71010; 76775; 80048; 80061; 81001; 81003; 82043; 82550; 82553; 82728; 82803; 82962; 83036; 83540; 83605; 83735; 83880; 84100; 84155; 84300; 84484; 85025; 85610; 85730; 86803; 86850; 86900; 86901; 86920; 87040; 87081; 87340; 93005; 93306; 94640; 94644; 94645; 94660; 94664; 96374; 97162; J1940; J0360; J1815; P9016; P9047